=== PATIENT | female | born 1990 | race Caucasian/White ===

== ENCOUNTER 2016-05-16 09:43 | Emergency (ER) | payer MEDICAID ==
[2016-05-16] MEDS ORDERED: DEXAMETHASONE SOD PHOS INJ 10 MG/1 ML VIAL IV ONE (10:50)
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
[2016-05-16] MEDS ORDERED: HYDROXYZINE PAMOATE 25 MG CAPSULE PO ONE (11:12)
[2016-05-16 11:29] LABS: ABSOLUTE EOSINOPHILS # (AUTO) 0.1 10^3/uL (0.0-0.6); ABSOLUTE LYMPHOCYTES (AUTO) 1.4 10^3/uL (0.5-4.7); ABSOLUTE MONOCYTES (AUTO) 0.6 10^3/uL (0.1-1.4); ABSOLUTE NEUT (AUTO) 4.3 10^3/uL (1.7-8.2); BASOPHILS % (AUTO) 0.5 % (0-2); EOSINOPHILS % (AUTO) 1.8 % (0-6); HEMATOCRIT 40.7 % (36.0-47.0); HEMOGLOBIN 13.1 g/dL (12.0-15.5); HGB HCT DIFFERENCE -1.4; LYMPHOCYTES % (AUTO) 21.5 % (13-45); MEAN CORPUSCULAR HEMOGLOBIN 28.2 pg (27.0-33.4); MEAN CORPUSCULAR HGB CONC 32.1 g/dL (32.0-36.0); MEAN CORPUSCULAR VOLUME 88 fl (80-97); MONOCYTES % (AUTO) 9.7 % (3-13); RED BLOOD COUNT 4.64 10^6/uL (3.72-5.28); RED CELL DISTRIBUTION WIDTH 13.6 % (11.5-14.0); SEGMENTED NEUTROPHILS % (AUTO) 66.5 % (42-78); WHITE BLOOD COUNT 6.4 10^3/uL (4.0-10.5)
[2016-05-16 12:35] VITALS: BP 114/62
== END 2016-05-16 12:19 | disposition home or self-care (01) ==
LOC: ER 09:43
DX: M54.42 Lumbago with sciatica, left side (principal); M54.41 Lumbago with sciatica, right side; M54.5 Low back pain; R20.0 Anesthesia of skin; V87.7XXA Person injured in collision between other specified motor vehicles (traffic), initial encounter; F17.210 Nicotine dependence, cigarettes, uncomplicated
CPT/HCPCS: 99284; 96374; 36415; 85025; 72132; J3490; J1100

== ENCOUNTER 2016-06-28 14:44 | Emergency (ER) | payer MEDICAID ==
[2016-06-28] MEDS ORDERED: ONDANSETRON 4 MG TAB.RAPDIS PO ONE (15:04)
--- NOTE | 2016-06-28 15:05 | ER Document Report ---
ED Medical Screen (RME) - General Chief Complaint: Vomiting Stated Complaint: VOMITING Time seen by provider: 15:02 Notes: Patient complains of severe back pain and feeling sick since Friday. States fever, nausea, vomiting, and diarrhea started 2 days ago. States vomit looks black, has not been able to keep down any liquid or solid food since Friday. I have greeted and performed a rapid initial assessment of this patient. A comprehensive ED assessment and evaluation of the patient, analysis of test results and completion of the medical decision making process will be conducted by additional ED providers. TRAVEL OUTSIDE OF THE [place] IN LAST 30 DAYS: No - Related Data Allergies/Adverse Reactions: acetaminophen [From Tylenol-Codeine] Adverse Reaction (Intermediate, Verified 15:00) Shortness of Breath codeine phosphate [From Tylenol-Codeine] Adverse Reaction (Intermediate, Verified 06/28/16 15:00) Shortness of Breath Past Medical History - Past Medical History Cardiac Medical History: Denies: Hx Coronary Artery Disease, Hx Heart Attack, Hx Hypertension Pulmonary Medical History: Reports: Hx Bronchitis Denies: Hx Asthma, Hx COPD, Hx Pneumonia, Hx Tuberculosis Neurological Medical History: Reports: Hx Migraine. Denies: Hx Cerebrovascular Accident, Hx Seizures Renal/ Medical History: Denies: Hx Peritoneal Dialysis Musculoskeltal Medical History: Denies Hx Arthritis Psychiatric Medical History: Reports: Hx Anxiety, Hx Attention Deficit Hyperactivity Disorder, Hx Depression Past Surgical History: Reports: Hx Abdominal Surgery - Hernia repair with mesh, Hx Appendectomy, Hx Cholecystectomy, Hx Orthopedic Surgery, Hx Tubal Ligation. Denies: Hx Pacemaker - Immunizations Hx Diphtheria, Pertussis, Tetanus Vaccination: Yes - 2009 Physical Exam - Vital signs Vitals: Temp Pulse Resp BP Pulse Ox 99.5 F 122 H 18 133/78 H 96 06/28/16 14:57 06/28/16 14:57 06/28/16 14:57 06/28/16 14:57 06/28/16 14:57 - Cardiovascular Rhythm: Tachycardia Course - Vital Signs Vital signs: Temp Pulse Resp BP Pulse Ox 99.5 F 122 H 18 133/78 H 96 06/28/16 14:57 06/28/16 14:57 06/28/16 14:57 06/28/16 14:57 06/28/16 14:57
[2016-06-28] MEDS ORDERED: NORMAL SALINE 1000 ML 1,000 ML IV ONE (15:20)
--- NOTE | 2016-06-28 15:40 | ER Document Report ---
ED GI/ - General Chief Complaint: Vomiting Stated Complaint: VOMITING Mode of Arrival: Ambulatory Information source: Patient Notes: Patient reports a four-day history of left flank pain that gradually started to radiate to left side of abdomen. Patient reports malodorous urine with dysuria. Patient reports fever 102 at home today. Patient does report nausea and vomiting 3 episodes today. Patient reports she did have diarrhea yesterday but none today. Patient reports that she gets frequent urinary tract infections. TRAVEL OUTSIDE OF THE [place] IN LAST 30 DAYS: No - HPI Patient complains to provider of: Dysuria, Flank pain. No: Vaginal bleeding, Vaginal discharge Onset: Other - 4 days Timing/Duration: Persistent, Worse Quality of pain: Sharp Pain Level: 5 Location: Left flank, Other - Left lateral side of abdomen Vaginal bleeding (Compared to normal period): None Associated symptoms: Diarrhea - Yesterday, none today, Dysuria, Fever, Nausea, Vomiting. denies: Loss of appetite, Urinary hesitancy, Urinary frequency, Urinary retention, Urinary urgency, Vaginal discharge Exacerbated by: Denies Relieved by: Denies Similar symptoms previously: Yes - UTI Recently seen / treated by doctor: No - Related Data Allergies/Adverse Reactions: acetaminophen [From Tylenol-Codeine] Adverse Reaction (Intermediate, Verified 15:00) Shortness of Breath codeine phosphate [From Tylenol-Codeine] Adverse Reaction (Intermediate, Verified 06/28/16 15:00) Shortness of Breath Past Medical History - General Information source: Patient Last Menstrual Period: 06/12/2016 - Social History Smoking Status: Never Smoker Chew tobacco use (# tins/day): No Frequency of alcohol use: None Drug Abuse: None Occupation: none Family History: None Patient has suicidal ideation: No Patient has homicidal ideation: No - Past Medical History Cardiac Medical History: Denies: Hx Coronary Artery Disease, Hx Heart Attack, Hx Hypertension Pulmonary Medical History: Reports: Hx Bronchitis Denies: Hx Asthma, Hx COPD, Hx Pneumonia, Hx Tuberculosis Neurological Medical History: Reports: Hx Migraine. Denies: Hx Cerebrovascular Accident, Hx Seizures Renal/ Medical History: Reports: Other - Frequent UTIs. Denies: Hx Peritoneal Dialysis Musculoskeltal Medical History: Denies Hx Arthritis Psychiatric Medical History: Reports: Hx Anxiety, Hx Attention Deficit Hyperactivity Disorder, Hx Depression Past Surgical History: Reports: Hx Abdominal Surgery - Hernia repair with mesh, Hx Appendectomy, Hx Cholecystectomy, Hx Orthopedic Surgery, Hx Tubal Ligation. Denies: Hx Pacemaker - Immunizations Hx Diphtheria, Pertussis, Tetanus Vaccination: Yes - 2009 Review of Systems - Review of Systems Constitutional: Fever EENT: No symptoms reported Cardiovascular: No symptoms reported. denies: Chest pain Respiratory: No symptoms reported. denies: Cough, Short of breath Gastrointestinal: Abdominal pain - Left lateral side of abdomen, Diarrhea - Yesterday, none today, Nausea, Vomiting. denies: Poor appetite Genitourinary: Dysuria, Flank pain. denies: Hematuria Female Genitourinary: No symptoms reported. denies: , Vaginal discharge , Vaginal bleeding Musculoskeletal: Back pain Skin: No symptoms reported Hematologic/Lymphatic: No symptoms reported Neurological/Psychological: No symptoms reported Physical Exam - Vital signs Vitals: Temp Pulse Resp BP Pulse Ox 99.5 F 122 H 18 133/78 H 96 06/28/16 14:57 06/28/16 14:57 06/28/16 14:57 06/28/16 14:57 06/28/16 14:57 - General General appearance: Alert In distress: Mild - HEENT Head: Normocephalic, Atraumatic Eyes: Normal Nasal: Normal Mouth/Lips: Normal Mucous membranes: Dry Pharynx: Normal Neck: Normal, Supple. No: Lymphadenopathy - Respiratory Respiratory status: No respiratory distress Chest status: Nontender Breath sounds: Normal Chest palpation: Normal - Cardiovascular Rhythm: Tachycardia Heart sounds: S1 appreciated, S2 appreciated Murmur: No - Abdominal Inspection: Normal Distension: No distension Bowel sounds: Normal Tenderness: Nontender Organomegaly: No organomegaly - Back Back: CVA tenderness - Bilateral, left worse than right - Extremities General upper extremity: Normal inspection, Normal strength General lower extremity: Normal inspection, Normal strength - Neurological Neuro grossly intact: Yes Cognition: Normal [place] Coma Scale Eye Opening: Spontaneous [place] Coma Scale Verbal: Oriented [place] Coma Scale Motor: Obeys Commands [place] Coma Scale Total: 15 - Psychological Associated symptoms: Normal affect, Normal mood - Skin Skin Temperature: Warm Skin Moisture: Dry Skin Color: Normal Course - Re-evaluation Re-evalutation: 06/28/16 17:29 Patient continues with left flank pain that radiates to left lateral side of abdomen. Patient requesting pain medication. 06/28/16 18:37 Patient with bilateral flank pain left worse than right that has been constant for the past 4 days. Patient states that her symptoms feel like when she has had a UTI in the past. Patient without any previous history of kidney stones. Patient's IV fluids infuse, vital signs normalized after patient hydrated. Patient without any vomiting at present. Suspect that patient's symptoms are more likely related to urinary tract infection, no concern for kidney stones at this time. Consulted with Dr. Abrams regarding patient presentation, exam findings and diagnostic test results. Recommends treating patients UTI symptoms with Keflex , does not recommend any imaging studies at this time. Recommends outpatient follow-up with urology. 06/28/16 19:00 Patient concerned that she has a possible kidney stone. Explained to patient that her symptoms are more consistent with early pyelonephritis versus renal colic at this time. Dr. Abrams to bedside for examination. Agrees with plan to treat patient for early pyelonephritis, does not suspect that patient has a kidney stone and does not recommend CT imaging at this time. Review of controlled substance database to show the patient's had multiple narcotic prescriptions over the past several months from a variety of providers. Patient does state that she's had back pain as well as dental pain. Patient advised that her pain symptoms would be managed with a short course of pain medication. - Vital Signs Vital signs: Temp Pulse Resp BP Pulse Ox 98.4 F 102 H 16 109/71 99 06/28/16 17:48 06/28/16 17:48 06/28/16 17:48 06/28/16 17:48 06/28/16 17:48 - Laboratory Result Diagrams: 06/28/16 15:30 06/28/16 15:30 Laboratory results interpreted by me: 06/28/16 06/28/16 06/28/16 15:30 15:30 15:30 WBC 13.2 H Seg Neuts % (Manual) 80 H Band Neutrophils % 1 L Lymphocytes % (Manual) 5 L Abs Neuts (Manual) 10.7 H Abs Monocytes (Manual) 1.5 H Abs Basophils (Manual) 0.3 H Potassium 3.3 L Lactic Acid AST 13 L Lipase 19.7 L Urine Protein 100 H Ur Leukocyte Esterase TRACE H 06/28/16 16:00 WBC Seg Neuts % (Manual) Band Neutrophils % Lymphocytes % (Manual) Abs Neuts (Manual) Abs Monocytes (Manual) Abs Basophils (Manual) Potassium Lactic Acid 0.5 L AST Lipase Urine Protein Ur Leukocyte Esterase Labs- Entire Visit 06/28/16 06/28/16 06/28/16 15:30 15:30 15:30 WBC 13.2 H RBC 4.36 Hgb 12.4 Hct 37.0 MCV 85 MCH 28.5 MCHC 33.6 RDW 13.7 Plt Count 212 Total Counted 100 Seg Neutrophils % Not Reportable Seg Neuts % (Manual) 80 H Band Neutrophils % 1 L Lymphocytes % Not Reportable Lymphocytes % (Manual) 5 L Atypical Lymphs % 1 Monocytes % Not Reportable Monocytes % (Manual) 11 Eosinophils % Not Reportable Eosinophils % (Manual) 0 Basophils % Not Reportable Basophils % (Manual) 2 Absolute Neutrophils Not Reportable Abs Neuts (Manual) 10.7 H Absolute Lymphocytes Not Reportable Abs Lymphs (Manual) 0.8 Absolute Monocytes Not Reportable Abs Monocytes (Manual) 1.5 H Absolute Eosinophils Not Reportable Absolute Eos (Manual) 0.0 Absolute Basophils Not Reportable Abs Basophils (Manual) 0.3 H Clumped Platelets PRESENT Platelet Comment ADEQUATE Polychromasia SLIGHT PT INR VBG pH VBG pCO2 VBG HCO3 VBG Base Excess Sodium 137.8 Potassium 3.3 L Chloride 102 Carbon Dioxide 24 Anion Gap 12 BUN 14 Creatinine 0.76 Est GFR ( Amer) > 60 Est GFR (Non-Af Amer) > 60 Glucose 99 Lactic Acid Calcium 9.7 Total Bilirubin 0.5 Direct Bilirubin 0.0 AST 13 L ALT 29 Alkaline Phosphatase 101 Total Protein 6.5 Albumin 3.7 Lipase 19.7 L Serum HCG, Qual NEGATIVE Urine Color Urine Appearance Urine pH Ur Specific [place] Urine Protein Urine Glucose (UA) Urine Ketones Urine Blood Urine Nitrite Urine Bilirubin Urine Urobilinogen Ur Leukocyte Esterase Urine WBC (Auto) Urine RBC (Auto) Urine Bacteria (Auto) Squamous Epi Cells Auto Urine Mucus (Auto) Urine Ascorbic Acid 06/28/16 06/28/16 06/28/16 15:30 16:00 17:35 WBC RBC Hgb Hct MCV MCH MCHC RDW Plt Count Total Counted Seg Neutrophils % Seg Neuts % (Manual) Band Neutrophils % Lymphocytes % Lymphocytes % (Manual) Atypical Lymphs % Monocytes % Monocytes % (Manual) Eosinophils % Eosinophils % (Manual) Basophils % Basophils % (Manual) Absolute Neutrophils Abs Neuts (Manual) Absolute Lymphocytes Abs Lymphs (Manual) Absolute Monocytes Abs Monocytes (Manual) Absolute Eosinophils Absolute Eos (Manual) Absolute Basophils Abs Basophils (Manual) Clumped Platelets Platelet Comment Polychromasia PT 13.8 INR 1.03 VBG pH VBG pCO2 VBG HCO3 VBG Base Excess Sodium Potassium Chloride Carbon Dioxide Anion Gap BUN Creatinine Est GFR ( Amer) Est GFR (Non-Af Amer) Glucose Lactic Acid 0.5 L Calcium Total Bilirubin Direct Bilirubin AST ALT Alkaline Phosphatase Total Protein Albumin Lipase Serum HCG, Qual Urine Color YELLOW Urine Appearance SLIGHTLY-CLOUDY Urine pH 6.0 Ur Specific [place] 1.024 Urine Protein 100 H Urine Glucose (UA) NEGATIVE Urine Ketones NEGATIVE Urine Blood NEGATIVE Urine Nitrite NEGATIVE Urine Bilirubin NEGATIVE Urine Urobilinogen NEGATIVE Ur Leukocyte Esterase TRACE H Urine WBC (Auto) 33 Urine RBC (Auto) 4 Urine Bacteria (Auto) TRACE Squamous Epi Cells Auto 10 Urine Mucus (Auto) FEW Urine Ascorbic Acid NEGATIVE 06/28/16 17:35 WBC RBC Hgb Hct MCV MCH MCHC RDW Plt Count Total Counted Seg Neutrophils % Seg Neuts % (Manual) Band Neutrophils % Lymphocytes % Lymphocytes % (Manual) Atypical Lymphs % Monocytes % Monocytes % (Manual) Eosinophils % Eosinophils % (Manual) Basophils % Basophils % (Manual) Absolute Neutrophils Abs Neuts (Manual) Absolute Lymphocytes Abs Lymphs (Manual) Absolute Monocytes Abs Monocytes (Manual) Absolute Eosinophils Absolute Eos (Manual) Absolute Basophils Abs Basophils (Manual) Clumped Platelets Platelet Comment Polychromasia PT INR VBG pH 7.39 VBG pCO2 43.5 VBG HCO3 25.7 VBG Base Excess 0.6 Sodium Potassium Chloride Carbon Dioxide Anion Gap BUN Creatinine Est GFR ( Amer) Est GFR (Non-Af Amer) Glucose Lactic Acid Calcium Total Bilirubin Direct Bilirubin AST ALT Alkaline Phosphatase Total Protein Albumin Lipase Serum HCG, Qual Urine Color Urine Appearance Urine pH Ur Specific [place] Urine Protein Urine Glucose (UA) Urine Ketones Urine Blood Urine Nitrite Urine Bilirubin Urine Urobilinogen Ur Leukocyte Esterase Urine WBC (Auto) Urine RBC (Auto) Urine Bacteria (Auto) Squamous Epi Cells Auto Urine Mucus (Auto) Urine Ascorbic Acid 06/28/16 18:41 06/28/16 19:27 Discharge - Discharge Clinical Impression: Flank pain, Hypokalemia UTI (urinary tract infection) Qualifiers: Urinary tract infection type: site unspecified Hematuria presence: without hematuria Qualified Code(s): N39.0 - Urinary tract infection, site not specified Condition: Stable Disposition: HOME, SELF-CARE Instructions: Flank Pain ([facility]), Hypokalemia ([facility]) Additional Instructions: Return immediately for any new or worsening symptoms Followup with your primary care provider, call tomorrow to make a followup appointment Follow-up with a urologist for a recheck. Call Friday morning for an appointment. Cultures are pending, we will call if you need any different treatment. Your potassium level was mildly decreased today. Your primary doctor can recheck this laboratory result next week. URINARY TRACT INFECTION: Your evaluation indicates that you have a urinary tract infection. This is due to germs growing in the bladder. This is a common problem. This infection usually responds quickly to antibiotics. Your antibiotic should be taken exactly as prescribed. Drink plenty of fluids -- three to four quarts a day. Occasionally, a bladder anesthetic will be prescribed to help stop the feeling of urgency until the antibiotic has a chance to clear the infection. This may cause your urine to be dark orange. Certain urine infections require a culture. If the doctor obtained a culture, the results will be back in two days. You should call to see if a change in treatment is needed. A repeat urinalysis after you finish treatment is often recommended. The physician will let you know if further testing is required. Call the doctor if you develop fever, chills, flank pain, inability to urinate, or blood in the urine. ANTIBIOTIC THERAPY: You have been given an antibiotic prescription. It's important that you take all the medication, unless instructed otherwise by your physician. Failure to complete the entire course can result in relapse of your condition. Common side effects of antibiotics include nausea, intestinal cramping, or diarrhea. Women may develop vaginal yeast infections, and babies can get yeast (thrush) in the mouth following the use of antibiotics. Contact your physician if you develop significant side effects from this medication. Allergy to this antibiotic can result in hives, wheezing, faintness, or itching. If symptoms of allergy occur, stop the medication and call the doctor. CEPHALEXIN: The antibiotic you've been prescribed is a member of the cephalosporin class. This type of antibiotic covers a wide variety of infections, including those of the skin, lungs, and urinary tract. It's useful for staph infections. This antibiotic is slightly similar to the penicillin family. In rare cases , a person who is allergic to penicillin will also be allergic to this medication. If you have had a severe allergic reaction to penicillin, and have not taken this antibiotic since that time, notify your doctor. Antibiotics which cover many germs ("broad spectrum" antibiotics) are more likely to cause diarrhea or "yeast" infections. Women prone to vaginal yeast problems may suffer an attack after taking this antibiotic. In infants, oral thrush (white spots "stuck" on the cheek) or yeast diaper rash may result. See your doctor if these problems occur. Call at once if you develop itching, hives , shortness of breath, or lightheadedness. URINARY ANESTHETIC AGENT: You have been given a medication (Pyridium) for urinary tract discomfort. This medicine numbs the lining of the bladder and urethra, resulting in less pain, burning, and urgency. You may take it as needed, according to instructions. When the symptoms resolve, you can stop this medication (be sure to continue any other medications the doctor has given you). This medicine turns the urine a dark orange. It may stain underwear. Occasionally, it can cause nausea. Return for evaluation if there are any unexpected effects, such as itching, hives, or shortness of breath. FOLLOW-UP CARE: If you have been referred to a physician for follow-up care, call the physician s office for an appointment as you were instructed or within the next two days. If you experience worsening or a significant change in your symptoms, notify the physician immediately or return to the Emergency Department at any time for re-evaluation. Prescriptions: Cephalexin Monohydrate [Keflex 500 mg Capsule] 500 mg PO BID 10 Days Hydrocodone/Acetaminophen [[place] 5-325 Tablet] 1 each PO Q4 PRN #12 tablet PRN Reason: Ondansetron HCl [Zofran 4 mg Tablet] 1 - 2 tab PO Q6 PRN #15 tablet PRN Reason: Phenazopyridine HCl [Pyridium 200 mg Tablet] 200 mg PO TID #15 tablet Referrals: [facility] [Provider Group] - Follow up tomorrow [facility] [Provider Group] - Follow up as needed [facility] [Provider Group] - 07/01/16
[2016-06-28 15:53] LABS: HEMOGLOBIN 12.4 g/dL (12.0-15.5); HGB HCT DIFFERENCE 0.2; MEAN CORPUSCULAR HEMOGLOBIN 28.5 pg (27.0-33.4); MEAN CORPUSCULAR HGB CONC 33.6 g/dL (32.0-36.0); MEAN CORPUSCULAR VOLUME 85 fl (80-97); RED BLOOD COUNT 4.36 10^6/uL (3.72-5.28); RED CELL DISTRIBUTION WIDTH 13.7 % (11.5-14.0); WHITE BLOOD COUNT 13.2 10^3/uL (4.0-10.5)
[2016-06-28 16:07] LABS: ALANINE AMINOTRANSFERASE 29 U/L (9-52); ALBUMIN 3.7 g/dL (3.5-5.0); ALKALINE PHOSPHATASE 101 U/L (38-126); ANION GAP 12 (5-19); ASPARTATE AMINO TRANSFERASE 13 U/L (14-36); BILIRUBIN,TOTAL 0.5 mg/dL (0.2-1.3); BLOOD UREA NITROGEN 14 mg/dL (7-20); CALCIUM 9.7 mg/dL (8.4-10.2); CARBON DIOXIDE 24 mmol/L (22-30); CHLORIDE 102 mmol/L (98-107); CREATININE RESULT 0.76 mg/dL (0.52-1.25); GLUCOSE 99 mg/dL (75-110); LIPASE 19.7 U/L (23-300); POTASSIUM 3.3 mmol/L (3.6-5.0); SODIUM 137.8 mmol/L (137-145); TOTAL PROTEIN 6.5 g/dL (6.3-8.2)
[2016-06-28 16:09] LABS: APPEARANCE,URINE SLIGHTLY-CLOUDY; BILIRUBIN,URINE NEGATIVE (NEGATIVE); GLUCOSE, URINE NEGATIVE (NEGATIVE); KETONES,URINE NEGATIVE (NEGATIVE); LEUKOCYTE ESTERASE,URINE TRACE (NEGATIVE); NITRITE,URINE NEGATIVE (NEGATIVE); PROTEIN,URINE 100 mg/dL (NEGATIVE); URINE SPECIFIC GRAVITY 1.024; UROBILINOGEN,URINE NEGATIVE mg/dL (<2.0)
[2016-06-28 16:17] LABS: BAND NEUTROPHILS % (MANUAL) 1 % (3-5); BASOPHILS % (MANUAL) 2 % (0-2); EOSINOPHILS % (MANUAL) 0 % (0-6); LYMPHOCYTES % (MANUAL) 5 % (13-45); TOTAL CELLS COUNTED 100
[2016-06-28 16:18] LABS: POLYCHROMASIA SLIGHT
[2016-06-28 16:19] LABS: PLATELET CLUMPS PRESENT
[2016-06-28] MEDS ORDERED: KETOROLAC TROMETHAMINE INJ/PF 30 MG/1 ML SDV IV ONE (17:28)
[2016-06-28 17:45] LABS: VENOUS BLOOD BASE EXCESS 0.6 mmol/L; VENOUS BLOOD HCO3 25.7 mmol/L (20-32); VENOUS BLOOD PCO2 43.5 mmHg (35-63); VENOUS BLOOD PH 7.39 (7.30-7.42)
[2016-06-28 17:52] LABS: PROTHROMBIN TIME 13.8 SEC (11.4-15.4)
[2016-06-28] MEDS ORDERED: CEFTRIAXONE RTU 1 GM/D5W 50 ML IV ONE (18:01)
[2016-06-28] MEDS ORDERED: POTASSIUM CHLORIDE 10 MEQ TABLET.SA PO ONE (18:34)
--- NOTE | 2016-06-28 18:51 | EKG REPORT ---
SEVERITY:- ABNORMAL ECG - SINUS TACHYCARDIA NONSPECIFIC REPOL ABNORMALITY, DIFFUSE LEADS : Confirmed by: Marvin Bunch MD 28-Jun-2016 18:50:42
[2016-06-28 20:43] VITALS: BP 117/71
== END 2016-06-28 19:31 | disposition home or self-care (01) ==
LOC: ER 14:44
DX: E87.6 Hypokalemia (principal); N39.0 Urinary tract infection, site not specified; R10.9 Unspecified abdominal pain; R50.9 Fever, unspecified; R11.2 Nausea with vomiting, unspecified; Z88.6 Allergy status to analgesic agent; Z87.440 Personal history of urinary (tract) infections; Z90.49 Acquired absence of other specified parts of digestive tract; Z98.51 Tubal ligation status
CPT/HCPCS: 93005; 99283; 96361; 96375; 96365; 36415; 87040; 87086; 83690; 84703; 85025; 85610; 80053; 81001; 82803; 83605; 93010; S0119; J1885; J7030; J0696

== ENCOUNTER → 2016-07-12 | Outpatient (CLI) | payer MEDICAID ==
[2016-07-12 15:03] LABS: ABSOLUTE EOSINOPHILS # (AUTO) 0.1 10^3/uL (0.0-0.6); ABSOLUTE LYMPHOCYTES (AUTO) 1.4 10^3/uL (0.5-4.7); ABSOLUTE MONOCYTES (AUTO) 0.7 10^3/uL (0.1-1.4); BASOPHILS % (AUTO) 0.7 % (0-2); EOSINOPHILS % (AUTO) 1.3 % (0-6); HEMATOCRIT 33.9 % (36.0-47.0); HEMOGLOBIN 11.3 g/dL (12.0-15.5); LYMPHOCYTES % (AUTO) 19.3 % (13-45); MEAN CORPUSCULAR HEMOGLOBIN 28.7 pg (27.0-33.4); MEAN CORPUSCULAR HGB CONC 33.3 g/dL (32.0-36.0); MEAN CORPUSCULAR VOLUME 86 fl (80-97); MONOCYTES % (AUTO) 9.7 % (3-13); RED BLOOD COUNT 3.94 10^6/uL (3.72-5.28); RED CELL DISTRIBUTION WIDTH 13.7 % (11.5-14.0); WHITE BLOOD COUNT 7.2 10^3/uL (4.0-10.5)
[2016-07-12 15:22] LABS: ALANINE AMINOTRANSFERASE 23 U/L (9-52); ALBUMIN 3.9 g/dL (3.5-5.0); ALKALINE PHOSPHATASE 80 U/L (38-126); ANION GAP 13 (5-19); ASPARTATE AMINO TRANSFERASE 15 U/L (14-36); BILIRUBIN,TOTAL 0.4 mg/dL (0.2-1.3); BLOOD UREA NITROGEN 15 mg/dL (7-20); CALCIUM 9.7 mg/dL (8.4-10.2); CARBON DIOXIDE 25 mmol/L (22-30); CHLORIDE 105 mmol/L (98-107); CREATININE RESULT 0.76 mg/dL (0.52-1.25); GLUCOSE 95 mg/dL (75-110); POTASSIUM 4.4 mmol/L (3.6-5.0); SODIUM 143.4 mmol/L (137-145)
== END ==
LOC: LAB 14:20
PROVIDERS: ATTEND Nurse Practitioner Family
DX: M54.10 Radiculopathy, site unspecified (principal); N10 Acute pyelonephritis
CPT/HCPCS: 36415; 80053; 85025; 87040

== ENCOUNTER → 2016-07-22 | Outpatient (CLI) | payer MEDICAID | LOC: OD 11:16 | PROVIDERS: ATTEND Nurse Practitioner Acute Care | DX: M54.5 Low back pain (principal); M51.86 Other intervertebral disc disorders, lumbar region | CPT/HCPCS: 72110 ==

== ENCOUNTER → 2016-09-04 | Outpatient (CLI) | payer SELFPAY ==
[2016-09-04 20:24] LABS: CHLAM PCR NOT DETECTED (NOT DETECT)
== END ==
LOC: LAB 15:48
PROVIDERS: ATTEND Nurse Practitioner Acute Care
DX: N89.8 Other specified noninflammatory disorders of vagina (principal); R30.0 Dysuria
CPT/HCPCS: 87086; 87210; 87491; 87591

== ENCOUNTER 2016-12-23 12:42 | Emergency (ER) | payer SELFPAY ==
[2016-12-23] MEDS ORDERED: ONDANSETRON HCL INJ/PF 4 MG/2 ML SDV IV ONE ×2 (13:16→15:10)
[2016-12-23] MEDS ORDERED: NORMAL SALINE 1000 ML 1,000 ML IV PRN (13:16)
--- NOTE | 2016-12-23 13:18 | ER Document Report ---
ED Medical Screen (RME) - General Chief Complaint: Flank Pain Stated Complaint: FLANK PAIN Time Seen by Provider: 12/23/16 13:15 Notes: Patient states that she has had several days of left lower quadrant and left flank pain. She states she gets frequent UTIs and kidney infections but this feels more severe than previous ones. Patient states that she has had a tubal ligation and appendectomy and a cholecystectomy. She has had nausea and vomiting as well. She also states she has dysuria. TRAVEL OUTSIDE OF THE [place] IN LAST 30 DAYS: No - Related Data Allergies/Adverse Reactions: acetaminophen [From Tylenol-Codeine] Adverse Reaction (Intermediate, Verified 12:52) Shortness of Breath codeine phosphate [From Tylenol-Codeine] Adverse Reaction (Intermediate, Verified 12/23/16 12:52) Shortness of Breath Home Medications: Current Home Medications No Home Medications 12/23/16 [History] Past Medical History - Social History Chew tobacco use (# tins/day): No Frequency of alcohol use: None Drug Abuse: None - Past Medical History Cardiac Medical History: Denies: Hx Coronary Artery Disease, Hx Heart Attack, Hx Hypertension Pulmonary Medical History: Reports: Hx Bronchitis Denies: Hx Asthma, Hx COPD, Hx Pneumonia, Hx Tuberculosis Neurological Medical History: Reports: Hx Migraine. Denies: Hx Cerebrovascular Accident, Hx Seizures Renal/ Medical History: Denies: Hx Peritoneal Dialysis Musculoskeltal Medical History: Denies Hx Arthritis Psychiatric Medical History: Reports: Hx Anxiety, Hx Attention Deficit Hyperactivity Disorder, Hx Depression Past Surgical History: Reports: Hx Abdominal Surgery - Hernia repair with mesh, Hx Appendectomy, Hx Cholecystectomy, Hx Orthopedic Surgery - Right finger, Hx Tubal Ligation. Denies: Hx Pacemaker - Immunizations Hx Diphtheria, Pertussis, Tetanus Vaccination: Yes - 2009 Physical Exam - Vital signs Vitals: Temp Pulse Resp BP Pulse Ox 98.2 F 126 H 18 131/76 H 99 12/23/16 12:52 12/23/16 12:52 12/23/16 12:52 12/23/16 12:52 12/23/16 12:52 Course - Vital Signs Vital signs: Temp Pulse Resp BP Pulse Ox 98.2 F 126 H 18 131/76 H 99 12/23/16 12:52 12/23/16 12:52 12/23/16 12:52 12/23/16 12:52 12/23/16 12:52
[2016-12-23 13:51] LABS: ABSOLUTE LYMPHOCYTES (AUTO) 0.9 10^3/uL (0.5-4.7); ABSOLUTE MONOCYTES (AUTO) 1.3 10^3/uL (0.1-1.4); ABSOLUTE NEUT (AUTO) 8.1 10^3/uL (1.7-8.2); BASOPHILS % (AUTO) 0.4 % (0-2); EOSINOPHILS % (AUTO) 0.1 % (0-6); HEMOGLOBIN 13.1 g/dL (12.0-15.5); HGB HCT DIFFERENCE 1.3; LYMPHOCYTES % (AUTO) 8.8 % (13-45); MEAN CORPUSCULAR HEMOGLOBIN 29.5 pg (27.0-33.4); MEAN CORPUSCULAR HGB CONC 34.4 g/dL (32.0-36.0); MEAN CORPUSCULAR VOLUME 86 fl (80-97); MONOCYTES % (AUTO) 12.5 % (3-13); RED BLOOD COUNT 4.43 10^6/uL (3.72-5.28); RED CELL DISTRIBUTION WIDTH 13.5 % (11.5-14.0); SEGMENTED NEUTROPHILS % (AUTO) 78.2 % (42-78); WHITE BLOOD COUNT 10.4 10^3/uL (4.0-10.5)
[2016-12-23] MEDS ORDERED: KETOROLAC TROMETHAMINE INJ/PF 30 MG/1 ML SDV IV ONE (13:53)
--- NOTE | 2016-12-23 13:53 | ER Document Report ---
ED General - General Mode of Arrival: Ambulatory Information source: Patient TRAVEL OUTSIDE OF THE [place] IN LAST 30 DAYS: No - HPI Onset: Other - 3 days Associated symptoms: Other - see above <REVA TURK - Last Filed: 12/23/16 13:47> <ALFONZO ROSAS - Last Filed: 12/23/16 17:13> - General Chief Complaint: Flank Pain Stated Complaint: FLANK PAIN Time Seen by Provider: 12/23/16 13:15 Notes: Patient is a 26 year old female who presents to the ED with complaints of left flank pain,pain with urination, nausea and vomiting x3 days. Patient has also had a fever. Patient denies a history of kidney stones. Patient LMP was . Patient is not on any daily medications. Patient adds she has had a cough for the past week. (REVA TURK) - Related Data Allergies/Adverse Reactions: acetaminophen [From Tylenol-Codeine] Adverse Reaction (Intermediate, Verified 12:52) Shortness of Breath codeine phosphate [From Tylenol-Codeine] Adverse Reaction (Intermediate, Verified 12/23/16 12:52) Shortness of Breath Past Medical History - General Information source: Patient - Social History Smoking Status: Current Every Day Smoker Chew tobacco use (# tins/day): No Frequency of alcohol use: Rare Drug Abuse: None Family History: None Pulmonary Medical History: Reports: Hx Bronchitis Denies: Hx Asthma, Hx COPD, Hx Pneumonia, Hx Tuberculosis Neurological Medical History: Reports: Hx Migraine Renal/ Medical History: Denies: Hx Peritoneal Dialysis Musculoskeltal Medical History: Denies Hx Arthritis Psychiatric Medical History: Reports: Hx Anxiety, Hx Attention Deficit Hyperactivity Disorder, Hx Depression Past Surgical History: Reports: Hx Abdominal Surgery - Hernia repair with mesh, Hx Appendectomy, Hx Cholecystectomy, Hx Orthopedic Surgery - Right finger, Hx Tubal Ligation. Denies: Hx Pacemaker - Immunizations Hx Diphtheria, Pertussis, Tetanus Vaccination: Yes - 2009 <REVA TURK - Last Filed: 12/23/16 13:47> Review of Systems - Review of Systems Constitutional: See HPI, Fever EENT: No symptoms reported Cardiovascular: No symptoms reported Respiratory: See HPI, Cough Gastrointestinal: See HPI, Nausea, Vomiting Genitourinary: See HPI, Dysuria, Flank pain, Pain Female Genitourinary: See HPI, Last menstrual period - 12/03/16 Musculoskeletal: No symptoms reported Skin: No symptoms reported Hematologic/Lymphatic: No symptoms reported Neurological/Psychological: No symptoms reported <REVA TURK - Last Filed: 12/23/16 13:47> Physical Exam - General General appearance: Appears well, Alert In distress: None - HEENT Head: Normocephalic, Atraumatic Eyes: Normal Extraocular movements intact: Yes Pupils: PERRL Sinus: Other - congestion - Respiratory Respiratory status: No respiratory distress Breath sounds: Nonproductive cough, Rhonchi - Cardiovascular Rhythm: Regular Heart sounds: Normal auscultation Murmur: No - Abdominal Inspection: Normal Distension: No distension Bowel sounds: Normal Tenderness: Nontender - Back Back: CVA tenderness - left CVA - Extremities General upper extremity: Normal inspection, Normal ROM General lower extremity: Normal inspection, Normal ROM - Neurological Neuro grossly intact: Yes - Psychological Associated symptoms: Normal affect, Normal mood - Skin Skin Temperature: Warm Skin Moisture: Dry Skin Color: Normal <REVA TURK - Last Filed: 12/23/16 13:47> - Vital signs Vitals: Temp Pulse Resp BP Pulse Ox 98.2 F 126 H 18 131/76 H 99 12/23/16 12:52 12/23/16 12:52 12/23/16 12:52 12/23/16 12:52 12/23/16 12:52 Course - Laboratory Result Diagrams: 12/23/16 13:37 12/23/16 13:37 <REVA TURK - Last Filed: 12/23/16 13:47> - Laboratory Result Diagrams: 12/23/16 13:37 12/23/16 13:37 <ALFONZO ROSAS - Last Filed: 12/23/16 17:13> - Vital Signs Vital signs: Temp Pulse Resp BP Pulse Ox 98.2 F 126 H 18 131/76 H 99 12/23/16 12:52 12/23/16 12:52 12/23/16 12:52 12/23/16 12:52 12/23/16 12:52 - Laboratory Laboratory results interpreted by me: 12/23/16 12/23/16 13:37 15:30 Seg Neutrophils % 78.2 H Lymphocytes % 8.8 L Ur Leukocyte Esterase TRACE H Discharge <REVA TURK - Last Filed: 12/23/16 13:47> <ALISONALFONZO Vigil - Last Filed: 12/23/16 17:13> - Discharge Clinical Impression: Flank pain Urinary tract infection Qualifiers: Urinary tract infection type: site unspecified Hematuria presence: without hematuria Qualified Code(s): N39.0 - Urinary tract infection, site not specified Condition: Stable Disposition: HOME, SELF-CARE Additional Instructions: Flank Pain: We weren't able to prove an exact cause for your flank pain. Pain in the flank can be caused by a muscle strain or spasm. Sometimes a kidney stone causes pain, but can't be found on our tests. Infection in the kidney should be evident on a urine test. Early shingles can occasionally cause flank pain, without the rash that proves the diagnosis. On rare occasions, disease of the pancreas, aorta, spleen, or colon can create pain in the flank. At this time, there's no evidence of a dangerous condition, and it seems safe for you to be at home. If the pain goes away and does not come back, no further testing will be needed. If pain persists, or becomes more severe, we may need to repeat some tests or order additional new testing. Blood in the urine, urgency to urinate frequently, and pain that radiates to the groin can indicate a kidney stone. Fever may mean that the pain is due to infection, either of the kidney or the colon (diverticulitis). If your pain is early shingles, you should develop an eruption of blisters in the painful area within a few days. Call the doctor or return if you have pain that is spreading or becoming more severe, pain that does not resolve with time, fever, or any other new symptoms. Urinary Tract Infection: Your evaluation SUGGESTS that you have a urinary tract infection. This is due to germs growing in the bladder. This is a common problem. This infection usually responds quickly to antibiotics. Your antibiotic should be taken exactly as prescribed. Drink plenty of fluids -- three to four quarts a day. Occasionally, a bladder anesthetic will be prescribed to help stop the feeling of urgency until the antibiotic has a chance to clear the infection. This may cause your urine to be dark orange. Certain urine infections require a culture. If the doctor obtained a culture, the results will be back in two days. You should call to see if a change in treatment is needed. A repeat urinalysis after you finish treatment is often recommended. The physician will let you know if further testing is required. Call the doctor if you develop fever, chills, flank pain, inability to urinate, or blood in the urine. YOUR PAIN IS MOST LIKELY COMING FORM THE FLANK MUSCLES. YOUR URINE SUGGESTS THAT YOU MAY HAVE A BLADDER INFECTION. TAKE THE MEDICATION PRESCRIBED. DRINK MPLENTY OF FLUIDS. REST. FOLLOW UP WITH YOUR DOCTOR IF NOT IMPROVING. RETURN TO THE EMERGENCY ROOM IF ANY NEW OR WORSENING SYMPTOMS. Prescriptions: Cephalexin Monohydrate [Keflex 500 mg Capsule] 500 mg PO QID #20 capsule Hydrocodone/Acetaminophen [Hydrocodon-Acetaminophen 5-325] 1 each PO Q4 PRN #15 tablet PRN Reason: For Pain Scribe Attestation: 12/23/16 17:11 I personally performed the services described in the documentation, reviewed and edited the documentation which was dictated to the scribe in my presence, and it accurately records my words and actions. (ALFONZO ROSAS) Scribe Documentation - Scribe Written by Paula:: paula Black, 12/23/2016, 1354 acting as scribe for :: Alison <REVA TURK - Last Filed: 12/23/16 13:47>
[2016-12-23 14:17] LABS: ALANINE AMINOTRANSFERASE 32 U/L (9-52); ALBUMIN 4.5 g/dL (3.5-5.0); ALKALINE PHOSPHATASE 85 U/L (38-126); ANION GAP 13 (5-19); ASPARTATE AMINO TRANSFERASE 28 U/L (14-36); BILIRUBIN,DIRECT 0.3 mg/dL (0.0-0.4); BILIRUBIN,TOTAL 0.8 mg/dL (0.2-1.3); BLOOD UREA NITROGEN 11 mg/dL (7-20); CALCIUM 9.9 mg/dL (8.4-10.2); CARBON DIOXIDE 26 mmol/L (22-30); CHLORIDE 98 mmol/L (98-107); CREATININE RESULT 0.71 mg/dL (0.52-1.25); GLUCOSE 92 mg/dL (75-110); POTASSIUM 3.8 mmol/L (3.6-5.0); SODIUM 137.3 mmol/L (137-145); TOTAL PROTEIN 7.5 g/dL (6.3-8.2)
[2016-12-23] MEDS ORDERED: DEXTROSE 5%-LACTATED RINGERS 1,000 ML IV ONE (14:36)
[2016-12-23] MEDS ORDERED: MORPHINE SULFATE 10 MG/ML INJ IV ONE (15:10)
[2016-12-23 17:03] LABS: APPEARANCE,URINE SLIGHTLY-CLOUDY; BILIRUBIN,URINE NEGATIVE (NEGATIVE); GLUCOSE, URINE NEGATIVE (NEGATIVE); KETONES,URINE NEGATIVE (NEGATIVE); LEUKOCYTE ESTERASE,URINE TRACE (NEGATIVE); NITRITE,URINE NEGATIVE (NEGATIVE); PROTEIN,URINE NEGATIVE (NEGATIVE); URINE SPECIFIC GRAVITY 1.005; UROBILINOGEN,URINE NEGATIVE mg/dL (<2.0)
[2016-12-23 17:25] VITALS: BP 124/74
== END 2016-12-23 17:26 | disposition home or self-care (01) ==
LOC: ER 12:42
DX: N39.0 Urinary tract infection, site not specified (principal); R10.9 Unspecified abdominal pain; R30.0 Dysuria; R11.2 Nausea with vomiting, unspecified; R50.9 Fever, unspecified; R09.89 Other specified symptoms and signs involving the circulatory and respiratory systems; R09.81 Nasal congestion; R05 Cough; F17.200 Nicotine dependence, unspecified, uncomplicated; Z90.49 Acquired absence of other specified parts of digestive tract; Z98.51 Tubal ligation status
CPT/HCPCS: 96376; 99284; 96375; 96365; 36415; 87086; 85025; 81025; 80053; 81001; J1885; J2270; J2405

== ENCOUNTER → 2016-12-24 | Outpatient (CLI) | payer SELFPAY ==
--- NOTE | 2016-12-24 14:03 | RADIOLOGY REPORT (SQ) ---
EXAM DESCRIPTION: CHEST PA/LAT COMPLETED DATE/TIME: 12/24/2016 1:52 pm REASON FOR STUDY: COUGH COMPARISON: Two-view chest 10/16/2015 EXAM PARAMETERS: NUMBER OF VIEWS: two views TECHNIQUE: Digital Frontal and Lateral radiographic views of the chest acquired. RADIATION DOSE: NA LIMITATIONS: none FINDINGS: LUNGS AND PLEURA: No opacities, masses or pneumothorax. No pleural effusion. MEDIASTINUM AND HILAR STRUCTURES: No masses or contour abnormalities. HEART AND VASCULAR STRUCTURES: Heart normal size. No evidence for failure. BONES: No acute findings. HARDWARE: Clips right upper quadrant post cholecystectomy. Laparoscopic periumbilical ventral hernia tacks. OTHER: No other significant finding. IMPRESSION: NO SIGNIFICANT RADIOGRAPHIC FINDING IN THE CHEST. TECHNICAL DOCUMENTATION: JOB ID: [id number] [employer]- All Rights Reserved
[2016-12-24 14:14] LABS: ABSOLUTE MONOCYTES (AUTO) 1.7 10^3/uL (0.1-1.4); ABSOLUTE NEUT (AUTO) 7.1 10^3/uL (1.7-8.2); BASOPHILS % (AUTO) 0.3 % (0-2); EOSINOPHILS % (AUTO) 0.3 % (0-6); HEMATOCRIT 36.2 % (36.0-47.0); HEMOGLOBIN 12.3 g/dL (12.0-15.5); HGB HCT DIFFERENCE 0.7; LYMPHOCYTES % (AUTO) 10.1 % (13-45); MEAN CORPUSCULAR HEMOGLOBIN 29.1 pg (27.0-33.4); MEAN CORPUSCULAR HGB CONC 33.9 g/dL (32.0-36.0); MEAN CORPUSCULAR VOLUME 86 fl (80-97); MONOCYTES % (AUTO) 17.3 % (3-13); RED BLOOD COUNT 4.22 10^6/uL (3.72-5.28); RED CELL DISTRIBUTION WIDTH 13.5 % (11.5-14.0); WHITE BLOOD COUNT 9.9 10^3/uL (4.0-10.5)
[2016-12-24 14:32] LABS: ALANINE AMINOTRANSFERASE 29 U/L (9-52); ALBUMIN 3.8 g/dL (3.5-5.0); ALKALINE PHOSPHATASE 77 U/L (38-126); ANION GAP 12 (5-19); ASPARTATE AMINO TRANSFERASE 16 U/L (14-36); BILIRUBIN,DIRECT 0.3 mg/dL (0.0-0.4); BILIRUBIN,TOTAL 0.6 mg/dL (0.2-1.3); BLOOD UREA NITROGEN 10 mg/dL (7-20); CALCIUM 9.8 mg/dL (8.4-10.2); CARBON DIOXIDE 27 mmol/L (22-30); CHLORIDE 101 mmol/L (98-107); CREATININE RESULT 0.66 mg/dL (0.52-1.25); GLUCOSE 113 mg/dL (75-110); POTASSIUM 3.4 mmol/L (3.6-5.0); SODIUM 140.1 mmol/L (137-145); TOTAL PROTEIN 6.4 g/dL (6.3-8.2)
== END ==
LOC: LAB 13:30
PROVIDERS: ATTEND Nurse Practitioner Family
DX: R05 Cough (principal); R07.81 Pleurodynia
CPT/HCPCS: 36415; 71020; 80053; 85025

== ENCOUNTER 2017-02-20 21:14 | Emergency (ER) | payer SELFPAY ==
[2017-02-20] MEDS ORDERED: BUTALB/ACETAMINOPHEN/CAFFEINE 1 TAB EACH PO ONE (22:18)
[2017-02-20] MEDS ORDERED: GABAPENTIN 300 MG CAPSULE PO ONE (23:17)
[2017-02-20] MEDS ORDERED: CLONIDINE 0.1 MG/24 HR PATCH.TDWK TD ONE (23:17)
[2017-02-20] MEDS ORDERED: ONDANSETRON ODT 4 MG TAB (6 TAB/DSPK) PO PRN (23:18)
[2017-02-20] MEDS ORDERED: CEPHALEXIN 500 MG CAPSULE PO ONE (23:19)
--- NOTE | 2017-02-20 23:24 | ER Document Report ---
ED General - General Chief Complaint: Headache Stated Complaint: DRUG WITHDRAWAL Time Seen by Provider: 02/20/17 22:00 Notes: Patient is a 26-year-old female with history of opiate dependency, last use of heroin approximately 12 hours prior to arrival who presents with requests for assistance with detox and withdrawal. Patient denies having ever gone more than a day without using opiates in the past 8-9 months. She does not currently have any active withdrawal symptoms. Patient also complains of pain to her left antecubital fossa where she believes she has developed an infection from injecting. Patient does state that she used clean needles but may have used an infected or contaminated cottonball to clean the area prior to injecting on occasion approximately 3 or 4 days ago. She does note a dull, constant aching pain to the affected area. Nothing improves or worsens that pain. She has not had any fever or constitutional symptoms. She has not seen a primary care doctor regarding today's concerns. TRAVEL OUTSIDE OF THE [place] IN LAST 30 DAYS: No - Related Data Allergies/Adverse Reactions: acetaminophen [From Tylenol-Codeine] Adverse Reaction (Intermediate, Verified 12:52) Shortness of Breath codeine phosphate [From Tylenol-Codeine] Adverse Reaction (Intermediate, Verified 12/23/16 12:52) Shortness of Breath Past Medical History - General Information source: Patient - Social History Smoking Status: Current Every Day Smoker Frequency of alcohol use: None Drug Abuse: Heroin, Methamphetamine, Prescription drugs Lives with: Spouse/Significant other Family History: Reviewed & Not Pertinent Patient has suicidal ideation: No Patient has homicidal ideation: No - Past Medical History Cardiac Medical History: Denies: Hx Coronary Artery Disease, Hx Heart Attack, Hx Hypertension Pulmonary Medical History: Reports: Hx Bronchitis Denies: Hx Asthma, Hx COPD, Hx Pneumonia, Hx Tuberculosis Neurological Medical History: Reports: Hx Migraine. Denies: Hx Cerebrovascular Accident, Hx Seizures Renal/ Medical History: Denies: Hx Peritoneal Dialysis Musculoskeltal Medical History: Denies Hx Arthritis Psychiatric Medical History: Reports: Hx Anxiety, Hx Attention Deficit Hyperactivity Disorder, Hx Depression Past Surgical History: Reports: Hx Abdominal Surgery - Hernia repair with mesh, Hx Appendectomy, Hx Cholecystectomy, Hx Orthopedic Surgery - Right finger, Hx Tubal Ligation. Denies: Hx Pacemaker - Immunizations Hx Diphtheria, Pertussis, Tetanus Vaccination: Yes - 2009 Review of Systems - Review of Systems Notes: Constitutional: Negative for fever. HENT: Negative for sore throat. Eyes: Negative for visual changes. Cardiovascular: Negative for chest pain. Respiratory: Negative for shortness of breath. Gastrointestinal: Negative for abdominal pain, vomiting or diarrhea. Genitourinary: Negative for dysuria. Musculoskeletal: Negative for back pain. Skin: Positive for rash. Neurological: Negative for headaches, weakness or numbness. 10 point ROS negative except as marked above and in HPI. Physical Exam - Vital signs Vitals: Temp Pulse Resp BP Pulse Ox 97 F L 98 15 114/79 100 02/20/17 21:32 02/20/17 21:32 02/20/17 21:32 02/20/17 21:32 02/20/17 21:32 Interpretation: Normal Notes: PHYSICAL EXAMINATION: GENERAL: Well-appearing, well-nourished and in no acute distress. HEAD: Atraumatic, normocephalic. EYES: Pupils equal round and reactive to light, extraocular movements intact, sclera anicteric, conjunctiva are normal. ENT: nares patent, oropharynx clear without exudates. Moist mucous membranes. NECK: Normal range of motion, supple without lymphadenopathy LUNGS: Breath sounds clear to auscultation bilaterally and equal. No wheezes rales or rhonchi. HEART: Regular rate and rhythm without murmurs ABDOMEN: Soft, nontender, normoactive bowel sounds. No guarding, no rebound. No masses appreciated. EXTREMITIES: Normal range of motion, no pitting or edema. No cyanosis. NEUROLOGICAL: No focal neurological deficits. Moves all extremities spontaneously and on command. PSYCH: Normal mood, normal affect. SKIN: Warm, Dry, normal turgor, multiple ecchymosis over the bilateral forearms and antecubital fossae. There is a raised, erythematous area on the left antecubital fossa without any fluctuance. Course - Re-evaluation Re-evalutation: 02/20/17 23:18 Patient presents with concerns of heroin withdrawal. Last used approximately 12 hours ago. No acute suicidal or homicidal ideation. Patient does also have signs of a superficial thrombophlebitis on the left antecubital fossa which will be treated with cephalexin. Patient has been given a clonidine patch here in the emergency department. Will start on gabapentin at night, Zofran for nausea control. I have also provided patient with a list of outpatient resources for rehab. I have also informed the patient about increased success rates with use of Suboxone versus withdrawal in the absence of such assistive medications and have encouraged to evaluate these resources. At this time will discharge with return precautions and follow-up recommendations. Verbal discharge instructions given a the bedside and opportunity for questions given. Medication warnings reviewed. Patient is in agreement with this plan and has verbalized understanding of return precautions and the need for primary care follow-up in the next 24-72 hours. - Vital Signs Vital signs: Temp Pulse Resp BP Pulse Ox 97 F L 98 22 H 114/83 98 02/20/17 21:32 02/20/17 21:32 02/20/17 23:31 02/20/17 23:31 02/20/17 23:31 Discharge - Discharge Clinical Impression: Opiate withdrawal Superficial thrombophlebitis Qualifiers: Superficial thrombophlebitis-Involved body area: upper extremity Laterality: left Qualified Code(s): I80.8 - Phlebitis and thrombophlebitis of other sites Condition: Good Disposition: HOME, SELF-CARE Additional Instructions: Your seen today for concerns of withdrawing from opiates. Opiate withdrawal is very uncomfortable but is not dangerous. The acute withdrawal phase will last for approximately 1 week and will consist of body aches, headache, nausea, vomiting, diarrhea, and abdominal pain. Sleeping can be difficult. You may also feel depressed or anxious. After the acute withdrawal is finished, it is very common to have chronic opiate withdrawal that can last for months. This can consist of feeling depressed and having cravings for opiates. I strongly encourage you to enroll in an outpatient rehab program and consider going on a medication such as Suboxone to prevent relapse. To help manage your acute withdrawal symptoms your are being sent home with a clonidine patch on. You may keep this patch on for up to 1 week. You have also been sent home with a prescription for a medication called gabapentin. You may take 600 mg nightly again to assist with sleep and withdrawal symptoms. You may take the Zofran also known as ondansetron that she were sent home with as needed for nausea and vomiting. Please return if you become suicidal, have persistent vomiting that prevents you from being able to take fluids for more than 12 hours, you pass out , or you have any other symptoms that are worrisome to you. Your also being treated for an infection of 1 of the veins in your left arm. Please take antibiotics until completed. You should also return if you develop fevers with temperature greater than 101, persistent vomiting, worsening pain, or have any other symptoms that are concerning to you. Prescriptions: Gabapentin 600 mg PO QHS #20 tablet Butalb/Acetaminophen/Caffeine [Fioricet (50-325-40 mg) Tablet] 1 - 2 tab PO Q4H #20 tab Cephalexin Monohydrate [Keflex 500 mg Capsule] 500 mg PO Q6H 7 Days capsule
[2017-02-21 00:16] VITALS: BP 114/83
== END 2017-02-21 | disposition home or self-care (01) ==
LOC: ER 21:14
DX: F11.23 Opioid dependence with withdrawal (principal); I80.8 Phlebitis and thrombophlebitis of other sites; F17.200 Nicotine dependence, unspecified, uncomplicated
CPT/HCPCS: 99284; J3490 ×2

== ENCOUNTER 2017-02-23 16:57 | Emergency (ER) | payer SELFPAY ==
[2017-02-23 17:03] VITALS: BP 110/73
--- NOTE | 2017-02-23 17:23 | ER Document Report ---
ED Substance Abuse / Acc. OD - General Chief Complaint: Drug Abuse Stated Complaint: WITHDRAWALS Time Seen by Provider: 02/23/17 17:04 Mode of Arrival: Ambulatory Information source: Patient, Parent TRAVEL OUTSIDE OF THE [place] IN LAST 30 DAYS: No - HPI Patient complains to provider of: Drug withdrawal Onset: Other - 3 days Onset/Duration: Persistent, Worse Quality of pain: Achy Severity: Moderate Pain Level: 2 Notes: Patient is a 26-year-old female who presents to the emergency room with her father with complaints of withdrawal from heroin, states her last use was 3 days ago and she has not followed up to get into detox or rehab program or any methadone or Suboxone clinic, she states that she does not want to go away to a detox or rehab program and she has no money to get into a methadone or Suboxone clinic, patient denies any suicidal or homicidal ideation, she is reporting body aches with nausea and cravings for heroin, she does have some mild swelling in her left antecubital fossa which is consistent with superficial thrombophlebitis, she was seen in this department approximately 3 days ago and prescribed multiple medications to deal with her symptoms as well as Keflex to prevent an infection at the site of thrombophlebitis, patient is accompanied by her father who seems quite angry with her that she has not followed up and gotten herself into detox or rehab and is requesting that we IVC patient and force her into a program - Related Data Allergies/Adverse Reactions: acetaminophen [From Tylenol-Codeine] Adverse Reaction (Intermediate, Verified 12:52) Shortness of Breath codeine phosphate [From Tylenol-Codeine] Adverse Reaction (Intermediate, Verified 12/23/16 12:52) Shortness of Breath Past Medical History - General Information source: Patient, Parent - Social History Smoking Status: Unknown if Ever Smoked Drug Abuse: Heroin Family History: Reviewed & Not Pertinent Patient has suicidal ideation: No Patient has homicidal ideation: No - Past Medical History Cardiac Medical History: Denies: Hx Coronary Artery Disease, Hx Heart Attack, Hx Hypertension Pulmonary Medical History: Reports: Hx Bronchitis Denies: Hx Asthma, Hx COPD, Hx Pneumonia, Hx Tuberculosis Neurological Medical History: Reports: Hx Migraine. Denies: Hx Cerebrovascular Accident, Hx Seizures Renal/ Medical History: Denies: Hx Peritoneal Dialysis Musculoskeltal Medical History: Denies Hx Arthritis Psychiatric Medical History: Reports: Hx Anxiety, Hx Attention Deficit Hyperactivity Disorder, Hx Depression Past Surgical History: Reports: Hx Abdominal Surgery - Hernia repair with mesh, Hx Appendectomy, Hx Cholecystectomy, Hx Orthopedic Surgery - Right finger, Hx Tubal Ligation. Denies: Hx Pacemaker - Immunizations Hx Diphtheria, Pertussis, Tetanus Vaccination: Yes - 2009 Review of Systems - Review of Systems Constitutional: No symptoms reported EENT: No symptoms reported Cardiovascular: No symptoms reported Respiratory: No symptoms reported Gastrointestinal: Nausea Genitourinary: No symptoms reported Female Genitourinary: No symptoms reported Musculoskeletal: See HPI Skin: No symptoms reported Hematologic/Lymphatic: No symptoms reported Neurological/Psychological: No symptoms reported -: Yes All other systems reviewed and negative Physical Exam - Vital signs Vitals: Temp Pulse Resp BP Pulse Ox 98.4 F 75 16 110/73 100 02/23/17 16:59 02/23/17 16:59 02/23/17 16:59 02/23/17 16:59 02/23/17 16:59 - Notes Notes: - General General appearance: Appears well, Alert In distress: None - HEENT Head: Normocephalic, Atraumatic Eyes: Normal Conjunctiva: Normal Extraocular movements intact: Yes Eyelashes: Normal Pupils: PERRL - Respiratory Respiratory status: No respiratory distress - Cardiovascular Rhythm: Regular - Abdominal Inspection: Normal - Back Back: Normal - Extremities General upper extremity: Mild erythema with firmness in the left antecubital fossa consistent with superficial thrombophlebitis General lower extremity: Normal inspection - Neurological Neuro grossly intact: Yes Orientation: AAOx4 Vikram Coma Scale Eye Opening: Spontaneous Vikram Coma Scale Verbal: Oriented Vikram Coma Scale Motor: Obeys Commands Vikram Coma Scale Total: 15 - Psychological Associated symptoms: Normal affect, Normal mood - Skin Skin Temperature: Warm Skin Moisture: Dry Skin Color: Normal Course - Re-evaluation Re-evalutation: 02/23/17 17:33 Patient was provided with resources to follow-up and get assistance with detoxing from heroin, including information for mental health and drug addiction treatment services in the area and information to follow-up with the [place] [facility] for possible methadone treatment, her father was quite angry that we would not IVC patient and place her in a drug rehab program , I attempted to explain to him that she does not meet IVC criteria for drug abuse, patient continued to deny being suicidal or homicidal, I offered to provide her with IV fluids and nonnarcotic medications to assist in her symptom relief, but she stated she has medications at home and she will attempt to follow-up to get further assistance tomorrow, she was quite reluctant to entering an actual drug treatment program stating that her daughter's birthday is coming up very soon and mentioning other excuses as to why she cannot go into a drug treatment program, patient was advised to return at any time should her symptoms worsen or she require any additional assistance, patient acknowledges understanding and agreement with this plan - Vital Signs Vital signs: Temp Pulse Resp BP Pulse Ox 98.4 F 75 16 110/73 100 02/23/17 16:59 02/23/17 16:59 02/23/17 16:59 02/23/17 16:59 02/23/17 16:59 Discharge - Discharge Clinical Impression: Opiate withdrawal Condition: Stable Disposition: HOME, SELF-CARE Instructions: Narcotic Abuse ([facility]), Pain Control without Medication ([facility]) Additional Instructions: Follow-up with substance abuse treatment services to get additional assistance with detox and rehab. Return to the emergency room immediately if any additional concerns.
== END 2017-02-23 17:30 | disposition home or self-care (01) ==
LOC: ER 16:57
DX: F11.23 Opioid dependence with withdrawal (principal); R11.0 Nausea; R52 Pain, unspecified; M79.89 Other specified soft tissue disorders; L53.9 Erythematous condition, unspecified
CPT/HCPCS: 99283

== ENCOUNTER 2017-05-27 08:36 | Emergency (ER) | payer SELFPAY ==
[2017-05-27] MEDS ORDERED: NORMAL SALINE 1000 ML 1,000 ML IV ONE (09:53)
--- NOTE | 2017-05-27 09:56 | ER Document Report ---
ED Medical Screen (RME) - General Chief Complaint: Neck Pain >24hrs old Stated Complaint: VOMITING Time Seen by Provider: 05/27/17 09:45 Mode of Arrival: Ambulatory Information source: Patient Notes: Patient is a 26 year old female presenting to the emergency department complaining of neck pain onset last night with associated symptoms of nausea, vomiting, blurry vision, and eye pain (which she describes as heavy). Patient states she was looking at TV last night when her neck pain was onset suddenly that radiated into her head and shoulders. Patient also complains of blisters on her upper lip and on her gums onset yesterday as well. 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 Patient states that she is around 2 months clean of heroin and meth. TRAVEL OUTSIDE OF THE [place] IN LAST 30 DAYS: No - Related Data Allergies/Adverse Reactions: codeine phosphate [From Tylenol-Codeine] Adverse Reaction (Intermediate, Verified 05/27/17 08:39) Shortness of Breath Past Medical History - Social History Chew tobacco use (# tins/day): No Frequency of alcohol use: None Drug Abuse: None - Past Medical History Cardiac Medical History: Denies: Hx Coronary Artery Disease, Hx Heart Attack, Hx Hypertension Pulmonary Medical History: Reports: Hx Bronchitis Denies: Hx Asthma, Hx COPD, Hx Pneumonia, Hx Tuberculosis Neurological Medical History: Reports: Hx Migraine. Denies: Hx Cerebrovascular Accident, Hx Seizures Renal/ Medical History: Denies: Hx Peritoneal Dialysis Musculoskeltal Medical History: Denies Hx Arthritis Psychiatric Medical History: Reports: Hx Anxiety, Hx Attention Deficit Hyperactivity Disorder, Hx Depression Past Surgical History: Reports: Hx Abdominal Surgery - Hernia repair with mesh, Hx Appendectomy, Hx Cholecystectomy, Hx Orthopedic Surgery - Right finger, Hx Tubal Ligation. Denies: Hx Pacemaker - Immunizations Hx Diphtheria, Pertussis, Tetanus Vaccination: Yes - 2009 Physical Exam - Vital signs Vitals: Temp Pulse Resp BP Pulse Ox 97.9 F 83 16 115/79 100 05/27/17 08:42 05/27/17 08:42 05/27/17 08:42 05/27/17 08:42 05/27/17 08:42 - General General appearance: Alert, Other - appears uncomfortable. In distress: None - HEENT Head: Normocephalic, Atraumatic Mouth/Lips: Other - vesicular lesions above [place] border. Course - Vital Signs Vital signs: Temp Pulse Resp BP Pulse Ox 97.9 F 83 16 115/79 100 05/27/17 08:42 05/27/17 08:42 05/27/17 08:42 05/27/17 08:42 05/27/17 08:42
[2017-05-27 10:47] LABS: ABSOLUTE EOSINOPHILS # (AUTO) 0.1 10^3/uL (0.0-0.6); ABSOLUTE LYMPHOCYTES (AUTO) 0.8 10^3/uL (0.5-4.7); ABSOLUTE MONOCYTES (AUTO) 0.7 10^3/uL (0.1-1.4); ABSOLUTE NEUT (AUTO) 4.3 10^3/uL (1.7-8.2); BASOPHILS % (AUTO) 0.8 % (0-2); EOSINOPHILS % (AUTO) 1.2 % (0-6); HEMOGLOBIN 14.1 g/dL (12.0-15.5); LYMPHOCYTES % (AUTO) 13.9 % (13-45); MEAN CORPUSCULAR HEMOGLOBIN 28.7 pg (27.0-33.4); MEAN CORPUSCULAR HGB CONC 33.6 g/dL (32.0-36.0); MEAN CORPUSCULAR VOLUME 86 fl (80-97); MONOCYTES % (AUTO) 11.3 % (3-13); PLATELET COUNT 293 10^3/uL (150-450); RED BLOOD COUNT 4.91 10^6/uL (3.72-5.28); RED CELL DISTRIBUTION WIDTH 15.7 % (11.5-14.0); SEGMENTED NEUTROPHILS % (AUTO) 72.8 % (42-78); TOTAL CELLS COUNTED % (AUTO) 100 %
--- NOTE | 2017-05-27 10:49 | RADIOLOGY REPORT (SQ) ---
EXAM DESCRIPTION: CHEST SINGLE VIEW COMPLETED DATE/TIME: 05/27/2017 10:31 am REASON FOR STUDY: med clearance COMPARISON: November 2016 EXAM PARAMETERS: NUMBER OF VIEWS: One view. TECHNIQUE: Single frontal radiographic view of the chest acquired. RADIATION DOSE: NA LIMITATIONS: None. FINDINGS: LUNGS AND PLEURA: No opacities, masses or pneumothorax. No pleural effusion. MEDIASTINUM AND HILAR STRUCTURES: No masses. Contour normal. HEART AND VASCULAR STRUCTURES: Heart normal in size. Normal vasculature. BONES: No acute findings. HARDWARE: None in the chest. OTHER: No other significant finding. IMPRESSION: NO ACUTE RADIOGRAPHIC FINDING IN THE CHEST. TECHNICAL DOCUMENTATION: JOB ID: [id number] [employer]- All Rights Reserved
--- NOTE | 2017-05-27 10:51 | RADIOLOGY REPORT (SQ) ---
EXAM DESCRIPTION: CT HEAD WITHOUT COMPLETED DATE/TIME: 05/27/2017 10:38 am REASON FOR STUDY: headache, stiff neck, vesicular lesions in mouth COMPARISON: None. TECHNIQUE: Axial images acquired through the brain without intravenous contrast. Images reviewed wi th bone, brain and subdural windows. Images stored on PACS. All CT scanners at this facility use dose modulation, iterative reconstruction, and/or weight based d osing when appropriate to reduce radiation dose to as low as reasonably achievable (ALARA). [facility]: Dose Right [facility]: CareDose [facility]: Dose Right [facility]: Teradose 4D [facility]: [employer] RADIATION DOSE: CT Rad equipment meets quality standard of care and radiation dose reduction techniq ues were employed. CTDIvol: 64.6 mGy. DLP: 1163 mGy-cm. mGy. LIMITATIONS: None. FINDINGS: VENTRICLES: Normal size and contour. CEREBRUM: No masses. No hemorrhage. No midline shift. No evidence for acute infarction. Normal gra y/white matter differentiation. No areas of low density in the white matter. CEREBELLUM: No masses. No hemorrhage. No alteration of density. No evidence for acute infarction. EXTRAAXIAL SPACES: No fluid collections. No masses. ORBITS AND GLOBE: No intra- or extraconal masses. Normal contour of globe without masses. CALVARIUM: No fracture. PARANASAL SINUSES: No fluid or mucosal thickening. SOFT TISSUES: No mass or hematoma. OTHER: No other significant finding. IMPRESSION: NORMAL BRAIN CT WITHOUT CONTRAST. EVIDENCE OF ACUTE STROKE: NO. COMMENT: Quality ID # [id number]: Final reports with documentation of one or more dose reduction techniques (e.g., Automated exposure control, adjustment of the mA and/or kV according to patient size, use of iterative reconstruction technique) TECHNICAL DOCUMENTATION: JOB ID: [id number] [employer]- All Rights Reserved
[2017-05-27 11:00] LABS: ALANINE AMINOTRANSFERASE 72 U/L (9-52); ALBUMIN 4.8 g/dL (3.5-5.0); ALKALINE PHOSPHATASE 68 U/L (38-126); ANION GAP 10 (5-19); ASPARTATE AMINO TRANSFERASE 56 U/L (14-36); BILIRUBIN,DIRECT 0.2 mg/dL (0.0-0.4); BILIRUBIN,TOTAL 0.7 mg/dL (0.2-1.3); BLOOD UREA NITROGEN 12 mg/dL (7-20); CALCIUM 10.6 mg/dL (8.4-10.2); CARBON DIOXIDE 28 mmol/L (22-30); CHLORIDE 104 mmol/L (98-107); GLUCOSE 91 mg/dL (75-110); SODIUM 141.9 mmol/L (137-145)
[2017-05-27 11:19] LABS: APPEARANCE,URINE SLIGHTLY-CLOUDY; BILIRUBIN,URINE NEGATIVE (NEGATIVE); COLOR,URINE YELLOW; GLUCOSE, URINE NEGATIVE (NEGATIVE); KETONES,URINE NEGATIVE (NEGATIVE); LEUKOCYTE ESTERASE,URINE NEGATIVE (NEGATIVE); NITRITE,URINE NEGATIVE (NEGATIVE); PROTEIN,URINE NEGATIVE (NEGATIVE); URINE SPECIFIC GRAVITY 1.017; UROBILINOGEN,URINE NEGATIVE mg/dL (<2.0)
[2017-05-27 11:35] LABS: URINE BARBITURATES SCREEN NEGATIVE; URINE BENZODIAZEPINES SCREEN NEGATIVE; URINE COCAINE SCREEN NEGATIVE; URINE MARIJUANA (THC) SCREEN NEGATIVE; URINE METHADONE SCREEN NEGATIVE; URINE PHENCYCLIDINE SCREEN NEGATIVE
[2017-05-27] MEDS ORDERED: ACETAMINOPHEN 325 MG TABLET PO ONE (11:53)
[2017-05-27] MEDS ORDERED: KETOROLAC TROMETHAMINE INJ/PF 30 MG/1 ML SDV IV ONE (12:31)
[2017-05-27] MEDS ORDERED: LIDOCAINE 1%/EPINEPHRINE INJ 20 ML VIAL INJ ONE ×2 (12:33)
--- NOTE | 2017-05-27 12:33 | ER Document Report ---
ED General - General Chief Complaint: Neck Pain >24hrs old Stated Complaint: VOMITING Time Seen by Provider: 05/27/17 09:45 Mode of Arrival: Ambulatory Notes: 26-year-old female with a history of labial herpes, presents with abrupt onset headache and neck pain last night, severe kept her up all night, neck stiffness no photophobia but positive fevers chills and "spots" that she says appear on her face. There is no appreciable rash. She also has a fever blister on her upper lip. She denies focal neurologic signs other than tingling in the palms and soles of her hands and feet. She denies injection drug use but has been clean from heroin for 2 months. TRAVEL OUTSIDE OF THE [place] IN LAST 30 DAYS: No - Related Data Allergies/Adverse Reactions: codeine phosphate [From Tylenol-Codeine] Adverse Reaction (Intermediate, Verified 05/27/17 08:39) Shortness of Breath Past Medical History - General Information source: Patient - Social History Smoking Status: Never Smoker Chew tobacco use (# tins/day): No Frequency of alcohol use: None Drug Abuse: None Family History: Reviewed & Not Pertinent Patient has suicidal ideation: No Patient has homicidal ideation: No - Past Medical History Cardiac Medical History: Denies: Hx Coronary Artery Disease, Hx Heart Attack, Hx Hypertension Pulmonary Medical History: Reports: Hx Bronchitis Denies: Hx Asthma, Hx COPD, Hx Pneumonia, Hx Tuberculosis Neurological Medical History: Reports: Hx Migraine. Denies: Hx Cerebrovascular Accident, Hx Seizures Renal/ Medical History: Denies: Hx Peritoneal Dialysis Musculoskeltal Medical History: Denies Hx Arthritis Psychiatric Medical History: Reports: Hx Anxiety, Hx Attention Deficit Hyperactivity Disorder, Hx Depression Past Surgical History: Reports: Hx Abdominal Surgery - Hernia repair with mesh, Hx Appendectomy, Hx Cholecystectomy, Hx Orthopedic Surgery - Right finger, Hx Tubal Ligation. Denies: Hx Pacemaker - Immunizations Hx Diphtheria, Pertussis, Tetanus Vaccination: Yes - 2009 Review of Systems - Review of Systems Notes: REVIEW OF SYSTEMS GEN: Denies fever, chills, weight loss ENT: Denies sore throat, nasal discharge, ear pain EYES: Denies blurry vision, eye pain, discharge CV: Denies chest pain, palpitations, edema RESP: Denies cough, shortness of breath, wheezing GI: Denies abdominal pain, nausea, vomiting, diarrhea MSK: Denies joint pain/swelling, edema, positive neck pain and stiffness SKIN: Denies rash, skin lesions LYMPH: Denies swollen glands/lymph nodes NEURO: Headache hand tingling, foot tingling PSYCH: Denies depression, suicidal or homicidal ideation PHYSICAL EXAMINATION General: No acute distress, well-nourished Head: Atraumatic, normocephalic ENT: Mouth normal, oropharynx moist, no exudates or tonsillar enlargement. Herpes lesion left upper lip. No spots or rash appreciated on the head or face. Eyes: Conjunctiva normal, pupils equal, lids normal Neck: No JVD, supple, no guarding CVS: Normal rate, regular rhythm, no. Mild stiffness. Murmurs Resp: No resp distress, equal and normal breath sounds bilaterally GI: Nondistended, soft, no tenderness to palpation, no rebound or guarding Ext: No deformities, no edema, normal range of motion in upper and lower ext Back: No CVA or midline TTP Skin: No rash, warm. Lymphatic: No lymphadeopathy noted Neuro: Awake, alert. Face symmetric. GCS 15. Physical Exam - Vital signs Vitals: Temp Pulse Resp BP Pulse Ox 97.9 F 83 16 115/79 100 05/27/17 08:42 05/27/17 08:42 05/27/17 08:42 05/27/17 08:42 05/27/17 08:42 Course - Re-evaluation Re-evalutation: 05/27/17 12:34 18-year-old female presented fever chills headache and neck stiffness along with hand and foot tingling concerning for meningitis versus flu. She does not have specific clinical symptoms consistent with encephalitis such as altered mental status. She was seen at triage and every test was ordered including chest x-ray blood work serology for herpes and a head CT. These are all normal. Her white count is normal. That is that I am still slightly concerned. Flu test will be sent, as this may explain her symptoms other than meningitis. 05/27/17 14:52 CSF shows no signs of pleocytosis. Patient is requesting Fioricet. She probably has a migraine. She will be given Fioricet and discharged home. Her flu and other studies were also negative.I have discussed with the patient there likely diagnosis, aftercare plan, follow-up plans and my usual and customary return precautions. They verbalized understanding of this. - Vital Signs Vital signs: Temp Pulse Resp BP Pulse Ox 97.9 F 83 19 135/79 H 98 05/27/17 08:42 05/27/17 08:42 05/27/17 13:31 05/27/17 13:31 05/27/17 13:31 - Laboratory Result Diagrams: 05/27/17 10:20 05/27/17 10:20 Laboratory results interpreted by me: 05/27/17 05/27/17 05/27/17 10:20 10:20 13:25 RDW 15.7 H Calcium 10.6 H AST 56 H ALT 72 H CSF WBC 8 H - Diagnostic Test Radiology reviewed: Image reviewed, Reports reviewed Procedures - Lumbar Puncture Lumbar puncture Time completed: 14:00 Consent obtained: Yes Lumbar puncture pre-procedure: Sterile PPE donned, Betadine prep applied, Sterile drapes applied Patient position: Sitting Needle size: 22 - sprotte atraumatic needle Lumbar puncture location: L4 Anesthetic type: 1% Lidocaine w/epi mL's of anesthetic: 5 Amount/type of drainage: Total 5 mL clear CSF. Number of attempts: 1 Complications: No Discharge - Discharge Clinical Impression: Headache Qualifiers: Headache type: unspecified Headache chronicity pattern: unspecified pattern Intractability: not intractable Qualified Code(s): R51 - Headache Condition: Good Disposition: HOME, SELF-CARE Instructions: Migraine Headache ([facility]) Additional Instructions: Please follow-up with your primary care doctor for ongoing management of her headache syndrome, which is probably migraine. He lumbar puncture today was normal. Please return to the ER for worsening headache vertigo vomiting or other signs that she need to have a blood patch as you have before.
[2017-05-27] MEDS ORDERED: MIDAZOLAM 2 MG/2 ML INJ IV ONE (12:38)
[2017-05-27 13:07] LABS: A TYPE INFLUENZA AG NEGATIVE (NEGATIVE); B INFLUENZA AG NEGATIVE (NEGATIVE)
[2017-05-27 14:12] LABS: GLUCOSE,CSF 53 mg/dL (40-70); PROTEIN,CSF 48 mg/dL (12-60)
[2017-05-27 14:32] LABS: APPEARANCE ALL TUBES CLEAR; COLOR ALL TUBES COLORLESS; CSF TUBE NUMBER 1; VOLUME TUBE 1 0.5 CC; VOLUME TUBE 2 0.8 CC
[2017-05-27 14:33] LABS: APPEARANCE ALL TUBES CLEAR; COLOR ALL TUBES COLORLESS; CSF TOTAL VOLUME 3.3 CC; CSF TUBE NUMBER 4; RED BLOOD CELL,CSF 582 /uL (0-10); WHITE BLOOD CELL,CSF 8 /uL (0-5)
[2017-05-27 14:34] LABS: CSF TOTAL VOLUME 3.3 CC; RED BLOOD CELL,CSF 1 /uL (0-10); VOLUME TUBE 1 0.5 CC; VOLUME TUBE 2 0.8 CC; WHITE BLOOD CELL,CSF 2 /uL (0-5)
[2017-05-27] MEDS ORDERED: BUTALB/ACETAMINOPHEN/CAFFEINE 1 TAB EACH PO ONE (14:48)
[2017-05-27 15:32] VITALS: BP 119/82
[2017-05-28 18:37] LABS: HSV I DNA Negative (Negative)
[2017-05-29 07:10] LABS: HSV II DNA Negative (Negative)
== END 2017-05-27 15:20 | disposition home or self-care (01) ==
LOC: ER 08:36
PROC: 009U3ZX Drainage of Spinal Canal, Percutaneous Approach, Diagnostic (ICD-10-PCS; principal; 2017-05-27)
DX: R51 Headache (principal); M54.2 Cervicalgia; R11.10 Vomiting, unspecified
CPT/HCPCS: 99284; 96361; 96374; 87529; 36415; 87040; 87070; 87205; 83605; 84703; 85025; 89050; 82945; 84157; 80053; 81001; 80307; 87804; 71045; 70450; 62270; J2250; J3490 ×2; J1885; J7030

== ENCOUNTER 2017-05-28 17:32 | Emergency (ER) | payer SELFPAY ==
[2017-05-28] MEDS ORDERED: ONDANSETRON HCL INJ/PF 4 MG/2 ML SDV IV ONE ×2 (18:01→20:39)
[2017-05-28] MEDS ORDERED: BUTALB/ACETAMINOPHEN/CAFFEINE 1 TAB EACH PO ONE (18:01)
[2017-05-28] MEDS ORDERED: NORMAL SALINE 1000 ML 1,000 ML IV ONE ×2 (18:01→20:39)
[2017-05-28] MEDS ORDERED: KETOROLAC TROMETHAMINE INJ/PF 30 MG/1 ML SDV IV ONE (18:03)
--- NOTE | 2017-05-28 18:03 | ER Document Report ---
ED Medical Screen (RME) - General Chief Complaint: Headache Stated Complaint: SPINAL FLUID LEAKAGE Time Seen by Provider: 05/28/17 17:53 Information source: Patient Notes: Patient was evaluated yesterday in the emergency department for possible meningitis. Patient had a lumbar puncture performed. Patient states today every time she stands up she has sudden worsening of headache with sudden onset of nausea and vomiting. Patient states she is vomited numerous times. Patient states she last took Motrin at 1 PM today. Patient does have a previous history of IV heroin drug use but has been clean for the past 2 months. hx: Tubal ligation, appendectomy, cholecystectomy, orthopedic surgery, hernia repair I have greeted and performed a rapid initial assessment of this patient. A comprehensive ED assessment and evaluation of the patient, analysis of test results and completion of the medical decision making process will be conducted by additional ED providers. TRAVEL OUTSIDE OF THE [place] IN LAST 30 DAYS: No - Related Data Allergies/Adverse Reactions: codeine phosphate [From Tylenol-Codeine] Adverse Reaction (Intermediate, Verified 05/28/17 17:36) Shortness of Breath Past Medical History - Past Medical History Cardiac Medical History: Denies: Hx Coronary Artery Disease, Hx Heart Attack, Hx Hypertension Pulmonary Medical History: Reports: Hx Bronchitis Denies: Hx Asthma, Hx COPD, Hx Pneumonia, Hx Tuberculosis Neurological Medical History: Reports: Hx Migraine. Denies: Hx Cerebrovascular Accident, Hx Seizures Renal/ Medical History: Denies: Hx Peritoneal Dialysis Musculoskeltal Medical History: Denies Hx Arthritis Psychiatric Medical History: Reports: Hx Anxiety, Hx Attention Deficit Hyperactivity Disorder, Hx Depression Past Surgical History: Reports: Hx Abdominal Surgery - Hernia repair with mesh, Hx Appendectomy, Hx Cholecystectomy, Hx Orthopedic Surgery - Right finger, Hx Tubal Ligation. Denies: Hx Pacemaker - Immunizations Hx Diphtheria, Pertussis, Tetanus Vaccination: Yes - 2009 Physical Exam - Vital signs Vitals: Temp Pulse Resp BP Pulse Ox 97.3 F 62 16 135/81 H 100 05/28/17 17:44 05/28/17 17:44 05/28/17 17:44 05/28/17 17:44 05/28/17 17:44 - Neurological Neuro grossly intact: Yes Cognition: Normal [place] Coma Scale Eye Opening: Spontaneous Vikram Coma Scale Verbal: Oriented Vikram Coma Scale Motor: Obeys Commands Vikram Coma Scale Total: 15 Course - Vital Signs Vital signs: Temp Pulse Resp BP Pulse Ox 97.3 F 62 16 135/81 H 100 05/28/17 17:44 05/28/17 17:44 05/28/17 17:44 05/28/17 17:44 05/28/17 17:44
[2017-05-28 19:00] LABS: ABSOLUTE EOSINOPHILS # (AUTO) 0.1 10^3/uL (0.0-0.6); ABSOLUTE MONOCYTES (AUTO) 0.8 10^3/uL (0.1-1.4); ABSOLUTE NEUT (AUTO) 4.4 10^3/uL (1.7-8.2); BASOPHILS % (AUTO) 0.5 % (0-2); EOSINOPHILS % (AUTO) 1.8 % (0-6); HEMATOCRIT 41.4 % (36.0-47.0); HEMOGLOBIN 13.9 g/dL (12.0-15.5); MEAN CORPUSCULAR HEMOGLOBIN 28.5 pg (27.0-33.4); MEAN CORPUSCULAR HGB CONC 33.5 g/dL (32.0-36.0); MEAN CORPUSCULAR VOLUME 85 fl (80-97); MONOCYTES % (AUTO) 12.2 % (3-13); PLATELET COUNT 258 10^3/uL (150-450); RED BLOOD COUNT 4.85 10^6/uL (3.72-5.28); RED CELL DISTRIBUTION WIDTH 15.7 % (11.5-14.0); SEGMENTED NEUTROPHILS % (AUTO) 69.5 % (42-78); TOTAL CELLS COUNTED % (AUTO) 100 %; WHITE BLOOD COUNT 6.4 10^3/uL (4.0-10.5)
[2017-05-28 19:13] LABS: ALANINE AMINOTRANSFERASE 359 U/L (9-52); ALBUMIN 4.8 g/dL (3.5-5.0); ALKALINE PHOSPHATASE 72 U/L (38-126); ANION GAP 12 (5-19); ASPARTATE AMINO TRANSFERASE 303 U/L (14-36); BILIRUBIN,DIRECT 0.5 mg/dL (0.0-0.4); BILIRUBIN,TOTAL 0.9 mg/dL (0.2-1.3); BLOOD UREA NITROGEN 10 mg/dL (7-20); CALCIUM 10.2 mg/dL (8.4-10.2); CARBON DIOXIDE 25 mmol/L (22-30); CHLORIDE 106 mmol/L (98-107); GLUCOSE 87 mg/dL (75-110); LIPASE 52.2 U/L (23-300); POTASSIUM 3.6 mmol/L (3.6-5.0); SODIUM 142.5 mmol/L (137-145); TOTAL PROTEIN 7.9 g/dL (6.3-8.2)
[2017-05-28] MEDS ORDERED: SUMATRIPTAN SUCCINATE INJ/PF 6 MG/0.5 ML SDV SUBCUT ONE (19:51)
--- NOTE | 2017-05-28 19:56 | ER Document Report ---
ED Headache - General Mode of Arrival: Wheelchair Information source: Patient TRAVEL OUTSIDE OF THE [place] IN LAST 30 DAYS: No <HU SEGURA - Last Filed: 05/29/17 00:51> <LORETA RUIZ - Last Filed: 05/29/17 11:48> - General Chief Complaint: Headache Stated Complaint: SPINAL FLUID LEAKAGE Time Seen by Provider: 05/28/17 17:53 Notes: Patient is a 26-year-old female who presents to the ER today for worsening headache with vomiting after having a lumbar puncture yesterday around 3 PM. Patient states that she usually has to have a blood patch after she gets "tapped." Patient had the lumbar puncture yesterday here in the emergency department to rule out meningitis. Patient states that she has many years of ongoing migraines that she "cannot get anyone to figure out." Patient states she has seen neurology but is never received an MRI of her head, CAT scans only. Patient states that Fioricet is been the only thing that has ever helped her. She takes at least 10 Tylenol with caffeine [id number] at a time to get rid of her headaches. She has been taking these since her headache worsened around 2 PM today. Patient states that she cannot sit up or stand up without having a "throbbing" headache and vomiting profusely. She states that lying flat relieves her symptoms. She denies fever. (HU SEGURA) - Related Data Allergies/Adverse Reactions: codeine phosphate [From Tylenol-Codeine] Adverse Reaction (Intermediate, Verified 05/28/17 19:08) Shortness of Breath Past Medical History - General Information source: Patient - Social History Smoking Status: Unknown if Ever Smoked Chew tobacco use (# tins/day): No Frequency of alcohol use: None Drug Abuse: None Family History: Reviewed & Not Pertinent Patient has suicidal ideation: No Patient has homicidal ideation: No - Past Medical History Cardiac Medical History: Denies: Hx Coronary Artery Disease, Hx Heart Attack, Hx Hypertension Pulmonary Medical History: Reports: Hx Bronchitis Denies: Hx Asthma, Hx COPD, Hx Pneumonia, Hx Tuberculosis Neurological Medical History: Reports: Hx Migraine. Denies: Hx Cerebrovascular Accident, Hx Seizures Renal/ Medical History: Denies: Hx Peritoneal Dialysis Musculoskeltal Medical History: Denies Hx Arthritis Psychiatric Medical History: Reports: Hx Anxiety, Hx Attention Deficit Hyperactivity Disorder, Hx Depression Past Surgical History: Reports: Hx Abdominal Surgery - Hernia repair with mesh, Hx Appendectomy, Hx Cholecystectomy, Hx Orthopedic Surgery - Right finger, Hx Tubal Ligation. Denies: Hx Pacemaker - Immunizations Hx Diphtheria, Pertussis, Tetanus Vaccination: Yes - 2009 <HU SEGURA - Last Filed: 05/29/17 00:51> Review of Systems - Review of Systems Constitutional: No symptoms reported EENT: No symptoms reported Cardiovascular: No symptoms reported Respiratory: No symptoms reported Gastrointestinal: See HPI Genitourinary: No symptoms reported Female Genitourinary: No symptoms reported Musculoskeletal: No symptoms reported Skin: No symptoms reported Hematologic/Lymphatic: No symptoms reported Neurological/Psychological: See HPI <HU SEGURA - Last Filed: 05/29/17 00:51> Physical Exam <HU SEGURA - Last Filed: 05/29/17 00:51> <LORETA RUIZ - Last Filed: 05/29/17 11:48> - Vital signs Vitals: Temp Pulse Resp BP Pulse Ox 97.3 F 62 16 135/81 H 100 05/28/17 17:44 05/28/17 17:44 05/28/17 17:44 05/28/17 17:44 05/28/17 17:44 - Notes Notes: PHYSICAL EXAMINATION: GENERAL: uncomfortable appearing, lying flat, but in no acute distress. HEAD: Atraumatic, normocephalic. EYES: Pupils equal round and reactive to light, extraocular movements intact, sclera anicteric, conjunctiva are normal. NECK: Normal range of motion, supple without lymphadenopathy LUNGS: CTAB and equal. No wheezes rales or rhonchi. HEART: Regular rate and rhythm without murmurs ABDOMEN: Soft, no tenderness. No guarding, no rebound BACK: lumbar vertebral tenderness, see extremities above EXTREMITIES: Normal range of motion of legs at hips, pt will not sit up for me due to headache/vomiting, no pitting edema. No cyanosis. good capillary refill distally to all extremities NEUROLOGICAL: Cranial nerves grossly intact. Normal sensory/motor exams. PSYCH: upset, anxious SKIN: Warm, Dry, normal turgor, no rashes or lesions noted (HU SEGURA) Course - Laboratory Result Diagrams: 05/28/17 18:49 05/28/17 18:49 <HU SEGURA - Last Filed: 05/29/17 00:51> - Laboratory Result Diagrams: 05/28/17 18:49 05/28/17 18:49 <LORETA RUIZ - Last Filed: 05/29/17 11:48> - Re-evaluation Re-evalutation: 05/28/17 19:56 Dr. Escamilla, anesthesiologist automatic centrifugal station operator states that he is too busy now, and to hold in her in the ER overnight and he'll be available in the morning around 10:30am to perform blood patch. He can be reached at [phone]. 05/28/17 22:35 Pt cannot sit up without immediate headache and vomiting. At this time patient will remain here in the emergency department awaiting blood patch in the morning lying flat. 05/28/17 22:36 05/29/17 00:51 pt anxious, given ativan, then complained of headache after getting up to urinate, given morphine, now complaining of itching, given benadryl. (HU SEGURA) 05/29/17 11:45 Pt with no new concerns or complaints. Anesthesiologist completed procedure with 1L saline as well. His directions are to lay supine, drink plenty of fluids/caffeine, head down, no heavy lifting. Reviewed with patient is in agreement with instructions. Patient understands to return to the ED with any worsening/concerning symptoms otherwise as reviewed discharge. Recheck with your PCM in 3-5 days. (LORETA RUIZ) - Vital Signs Vital signs: Temp Pulse Resp BP Pulse Ox 97.6 F 61 17 116/60 99 05/29/17 06:10 05/29/17 06:10 05/29/17 06:10 05/29/17 06:10 05/29/17 06:10 - Laboratory Laboratory results interpreted by me: 05/28/17 05/28/17 05/28/17 18:49 18:49 18:49 RDW 15.7 H Direct Bilirubin 0.5 H AST 303 H ALT 359 H Acetaminophen < 10 L Discharge <HU SEGURA - Last Filed: 05/29/17 00:51> <LORETA RUIZ - Last Filed: 05/29/17 11:48> - Discharge Clinical Impression: Spinal headache Condition: Stable Disposition: HOME, SELF-CARE Additional Instructions: Rest Remain supine with head down No heavy lifting Push fluids and drink plenty of caffeine Recheck with your PCM in 3-5 days Return to the ED with any worsening symptoms and/or development of fever, worsening headache, changes in behavior/speech/vision/mentation, chest pain, palpitations, syncope, shortness of breath, trouble breathing, abdominal pain, n /v/d, blood in stool/urine, loss of control of bowel/bladder, urinary retention , muscle weakness/paralysis, saddle anesthesia, numbness/tingling, or other worsening symptoms that are concerning to you. Referrals: STEPHANY MCMAHAN MD [[facility]] - Follow up as needed
[2017-05-28] MEDS ORDERED: GABAPENTIN 100 MG CAPSULE PO ONE (20:09)
[2017-05-28] MEDS ORDERED: MORPHINE SULFATE 10 MG/ML INJ IV ONE (20:39)
[2017-05-28] MEDS ORDERED: LORAZEPAM INJ 2 MG/1 ML VIAL IV ONE (22:26)
[2017-05-29] MEDS ORDERED: MORPHINE SULFATE 10 MG/ML INJ IV ONE ×3 (00:16→09:35)
[2017-05-29] MEDS ORDERED: ONDANSETRON HCL INJ/PF 4 MG/2 ML SDV IV ONE ×2 (00:16→10:13)
[2017-05-29] MEDS ORDERED: DIPHENHYDRAMINE HCL 50 MG/ML VIAL IV ONE (00:44)
[2017-05-29 11:56] VITALS: BP 114/71
== END 2017-05-29 11:50 | disposition home or self-care (01) ==
LOC: ER 17:32
DX: G97.1 Other reaction to spinal and lumbar puncture (principal); Y84.4 Aspiration of fluid as the cause of abnormal reaction of the patient, or of later complication, without mention of misadventure at the time of the procedure; F41.9 Anxiety disorder, unspecified; Z86.69 Personal history of other diseases of the nervous system and sense organs
CPT/HCPCS: 62273 ×2; 96376; 99284; 96372; 96361; 96374; 96375; 36415; 83690; 80307; 85025; 80053; 80074; J3490; J1200; J1885; J2270 ×2; J2060; J2405 ×2; J3030; J7030

== ENCOUNTER 2017-06-04 02:09 | Emergency (ER) | payer SELFPAY ==
[2017-06-04] MEDS ORDERED: CEPHALEXIN 500 MG CAPSULE PO ONE (03:05)
[2017-06-04] MEDS ORDERED: FLUCONAZOLE 100 MG TABLET PO ONE (03:06)
[2017-06-04] MEDS ORDERED: SULFAMETHOXAZOLE/TRIMETHOPRIM 800-160 MG TABLET PO ONE (03:06)
--- NOTE | 2017-06-04 03:15 | ER Document Report ---
ED General - General Chief Complaint: Possible infected tattoo Stated Complaint: ARM PAIN Time Seen by Provider: 06/04/17 03:02 Notes: Patient is a 18-year-old female presents with complaint of redness around the tattoo that she had placed in her left forearm 2 days ago. No fevers. Some nausea but no vomiting. No other complaints at this time. She denies any allergies to any medications. TRAVEL OUTSIDE OF THE [place] IN LAST 30 DAYS: No - Related Data Allergies/Adverse Reactions: codeine phosphate [From Tylenol-Codeine] Adverse Reaction (Intermediate, Verified 05/28/17 19:08) Shortness of Breath Past Medical History - Social History Smoking Status: Unknown if Ever Smoked Frequency of alcohol use: None Drug Abuse: None Family History: Reviewed & Not Pertinent Patient has suicidal ideation: No Patient has homicidal ideation: No - Past Medical History Cardiac Medical History: Denies: Hx Coronary Artery Disease, Hx Heart Attack, Hx Hypertension Pulmonary Medical History: Reports: Hx Bronchitis Denies: Hx Asthma, Hx COPD, Hx Pneumonia, Hx Tuberculosis Neurological Medical History: Reports: Hx Migraine. Denies: Hx Cerebrovascular Accident, Hx Seizures Renal/ Medical History: Denies: Hx Peritoneal Dialysis Musculoskeltal Medical History: Denies Hx Arthritis Psychiatric Medical History: Reports: Hx Anxiety, Hx Attention Deficit Hyperactivity Disorder, Hx Depression Past Surgical History: Reports: Hx Abdominal Surgery - Hernia repair with mesh, Hx Appendectomy, Hx Cholecystectomy, Hx Orthopedic Surgery - Right finger, Hx Tubal Ligation. Denies: Hx Pacemaker - Immunizations Hx Diphtheria, Pertussis, Tetanus Vaccination: Yes - 2009 Review of Systems - Review of Systems Notes: My Normal Review Basic REVIEW OF SYSTEMS: CONSTITUTIONAL : Denies fever, chills, or sweats. Denies recent illness. EENT: Denies eye, ear, throat, or mouth pain or symptoms. Denies nasal or sinus congestion. RESPIRATORY: Denies cough, cold, or chest congestion. Denies shortness of breath, difficulty breathing, or wheezing. GASTROINTESTINAL: Denies abdominal pain. Some nausea. MUSCULOSKELETAL: Denies neck or back pain or joint pain or swelling. SKIN: tattoo of the left forearm is infected. NEUROLOGICAL: Denies altered mental status or loss of consciousness. Denies headache. Denies weakness or paralysis or loss of use of either side. Denies problems with gait or speech. Denies sensory or motor loss. ALL OTHER SYSTEMS REVIEWED AND NEGATIVE. Physical Exam - Notes Notes: General Appearance: Well nourished, alert, cooperative, no acute distress, no obvious discomfort. Vitals: reviewed, See vital signs table. Abdomen: Normal BS, soft, No rigidity, No abdominal tenderness, No guarding, no rebound, no abdominal masses, no organomegaly Extremities: strength 5/5 in all extremities, good pulses in all extremities, some pain to palpation of the area of the tattoo. Pain is not out of proportion to exam. No crepitance., no edema. Skin: Patient has redness around that had to the left forearm. There is no associated swelling. It is tender to palpation. Redness does not extend more than a centimeter beyond the tattoo. Neuro: speech clear, oriented x 3, normal affect, responds appropriately to questions. Course - Re-evaluation Re-evalutation: 06/04/17 04:09 Patient has what appears to be a simple cellulitis associated with her tattoo. There is no evidence of abscess. There is no evidence of necrotizing fasciitis. Will place her on antibiotics. I encouraged her return to ER immediately if she has spreading redness, swelling, or increasing pain. Patient agrees with plan will be discharged home. Dictation of this chart was performed using voice recognition software; therefore, there may be some unintended grammatical errors. Discharge - Discharge Clinical Impression: Cellulitis Qualifiers: Site of cellulitis: extremity Site of cellulitis of extremity: upper extremity Laterality: left Qualified Code(s): L03.114 - Cellulitis of left upper limb Condition: Good Disposition: HOME, SELF-CARE Additional Instructions: CELLULITIS: You have an infection of your skin and underlying soft tissues called cellulitis. This is due to bacteria, which can enter through any break in the skin, or even through an irritated hair follicle. Untreated, cellulitis will usually worsen. Antibiotics are required. Usually, warm packs or warm soaks, and elevation of the infected area are recommended. You should start getting better within 24 to 36 hours. Most infections respond quickly to the right medication. Follow-up care is important, however, to check for abscess (boil) formation, unsuspected foreign body, or resistant infection. If you develop fever, chills, or if the area of infection is becoming rapidly more swollen or painful, call the doctor at once. ANTIBIOTIC THERAPY: You have been given an antibiotic prescription. It's important that you take all the medication, unless instructed otherwise by your physician. Failure to complete the entire course can result in relapse of your condition. Common side effects of antibiotics include nausea, intestinal cramping, or diarrhea. Women may develop vaginal yeast infections, and babies can get yeast (thrush) in the mouth following the use of antibiotics. Contact your physician if you develop significant side effects from this medication. Allergy to this antibiotic can result in hives, wheezing, faintness, or itching. If symptoms of allergy occur, stop the medication and call the doctor. TRIMETHOPRIM-SULFA: You have been given a prescription for trimethoprim-sulfa (TMS, Septra, Bactrim). This is a combination antibiotic of the sulfa class, often used for urinary tract infections, middle ear infections, bronchitis, shigella intestinal infection, and Pneumocystis pneumonia. TMS is usually well-tolerated. Occasional side effects include nausea and decreased appetite. Septra is not recommended for infants less than two months of age. Do not take this medication if you have experienced severe side effects or allergy to sulfa medicine. You should stop this medicine at once and contact your physician if you develop any rash, joint pain, shortness of breath, bruising, or jaundice ( yellow color in the skin), or if you develop any other new or unusual symptoms. FOLLOW-UP CARE: If you have been referred to a physician for follow-up care, call the physician s office for an appointment as you were instructed or within the next two days. If you experience worsening or a significant change in your symptoms, notify the physician immediately or return to the Emergency Department at any time for re-evaluation. Please return to the ER immediately if you develop worsening spreading redness, swelling, fevers, or feel unwell. Please stop taking the antibiotic and return to the ER if you develop a rash or have diarrhea. Prescriptions: Cephalexin Monohydrate [Keflex 500 mg Capsule] 500 mg PO Q6H 7 Days capsule Sulfamethoxazole/Trimethoprim [Bactrim Ds Tablet] 1 each PO BID #14 tablet Forms: Return to Work
[2017-06-04] MEDS ORDERED: ONDANSETRON ODT 4 MG TAB (6 TAB/ER DISP) PO PRN (04:00)
[2017-06-04 04:08] VITALS: BP 136/84
== END 2017-06-04 04:08 | disposition home or self-care (01) ==
LOC: ER 02:09
DX: L03.114 Cellulitis of left upper limb (principal); M79.602 Pain in left arm; R11.0 Nausea; Z88.6 Allergy status to analgesic agent; Z90.49 Acquired absence of other specified parts of digestive tract; Z98.51 Tubal ligation status
CPT/HCPCS: 99283

== ENCOUNTER 2020-01-19 21:46 | Emergency (ER) | payer SELFPAY ==
[2020-01-19] MEDS ORDERED: OXYCODONE-ACETAMINOPHEN 5-325 MG TABLET PO ONE (22:31)
[2020-01-19] MEDS ORDERED: ONDANSETRON 4 MG TAB.RAPDIS PO ONE (22:31)
--- NOTE | 2020-01-19 22:34 | ER Document Report ---
ED Medical Screen (RME) - General Chief Complaint: Flank Pain Stated Complaint: FLANK PAIN,NAUSEA,VOMITING Time Seen by Provider: 01/19/20 22:31 Mode of Arrival: Ambulatory Information source: Patient Notes: Patient is a 29-year-old female coming in today for evaluation of right-sided flank pain and dysuria. Patient reports that she has no history of kidney stones but has had multiple kidney infections. Patient states symptoms for about a week. Some nausea. No active vomiting. Reported fevers and chills. Physical exam General: Appears uncomfortable, nontoxic appearing Cardio regular rate and rhythm Pulmonary clear to auscultation, no respiratory distress Abdominal nondistended nontender. Negative CVA tenderness. Neuro: No focal deficits. I have greeted and performed a rapid initial assessment of this patient. A comprehensive ED assessment and evaluation of the patient, analysis of test results and completion of the medical decision making process will be conducted by additional ED providers. TRAVEL OUTSIDE OF THE [place] IN LAST 30 DAYS: No - Related Data Allergies/Adverse Reactions: codeine phosphate [From Tylenol-Codeine] Adverse Reaction (Intermediate, Verified 05/28/17 19:08) Shortness of Breath Past Medical History - Social History Frequency of alcohol use: Social Drug Abuse: None - Past Medical History Cardiac Medical History: Denies: Hx Coronary Artery Disease, Hx Heart Attack, Hx Hypertension Pulmonary Medical History: Reports: Hx Bronchitis Denies: Hx Asthma, Hx COPD, Hx Pneumonia, Hx Tuberculosis Neurological Medical History: Reports: Hx Migraine. Denies: Hx Cerebrovascular Accident, Hx Seizures Renal/ Medical History: Denies: Hx Peritoneal Dialysis Musculoskeltal Medical History: Denies Hx Arthritis Psychiatric Medical History: Reports: Hx Anxiety, Hx Attention Deficit Hyperactivity Disorder, Hx Depression Past Surgical History: Reports: Hx Abdominal Surgery - Hernia repair with mesh, Hx Appendectomy, Hx Cholecystectomy, Hx Orthopedic Surgery - Right finger, Hx Tubal Ligation. Denies: Hx Pacemaker - Immunizations Hx Diphtheria, Pertussis, Tetanus Vaccination: Yes - 2009 Physical Exam - Vital signs Vitals: Temp Pulse Resp BP Pulse Ox 98.0 F 98 20 113/75 95 01/19/20 21:53 01/19/20 21:53 01/19/20 21:53 01/19/20 21:53 01/19/20 21:53 Course - Vital Signs Vital signs: Temp Pulse Resp BP Pulse Ox 98.0 F 98 20 113/75 95 01/19/20 21:53 01/19/20 21:53 01/19/20 21:53 01/19/20 21:53 01/19/20 21:53
[2020-01-19 23:18] LABS: ABSOLUTE BASOPHILS # (AUTO) 0.1 10^3/uL (0.0-0.2); ABSOLUTE EOSINOPHILS # (AUTO) 0.2 10^3/uL (0.0-0.6); ABSOLUTE LYMPHOCYTES (AUTO) 2.2 10^3/uL (0.5-4.7); ABSOLUTE MONOCYTES (AUTO) 0.8 10^3/uL (0.1-1.4); ABSOLUTE NEUT (AUTO) 8.3 10^3/uL (1.7-8.2); BASOPHILS % (AUTO) 0.8 % (0-2); EOSINOPHILS % (AUTO) 1.8 % (0-6); HEMOGLOBIN 14.2 g/dL (12.0-15.5); LYMPHOCYTES % (AUTO) 18.7 % (13-45); MEAN CORPUSCULAR HEMOGLOBIN 30.8 pg (27.0-33.4); MEAN CORPUSCULAR HGB CONC 34.7 g/dL (32.0-36.0); MEAN CORPUSCULAR VOLUME 89 fl (80-97); MONOCYTES % (AUTO) 7.1 % (3-13); PLATELET COUNT 306 10^3/uL (150-450); RED BLOOD COUNT 4.63 10^6/uL (3.72-5.28); RED CELL DISTRIBUTION WIDTH 13.5 % (11.5-14.0); SEGMENTED NEUTROPHILS % (AUTO) 71.6 % (42-78); TOTAL CELLS COUNTED % (AUTO) 100 %; WHITE BLOOD COUNT 11.6 10^3/uL (4.0-10.5)
[2020-01-19 23:23] LABS: APPEARANCE,URINE SLIGHTLY-CLOUDY; BILIRUBIN,URINE NEGATIVE (NEGATIVE); COLOR,URINE STRAW; GLUCOSE, URINE NEGATIVE (NEGATIVE); KETONES,URINE NEGATIVE (NEGATIVE); PROTEIN,URINE NEGATIVE (NEGATIVE); URINE SPECIFIC GRAVITY 1.006; UROBILINOGEN,URINE NEGATIVE mg/dL (<2.0)
[2020-01-19 23:35] LABS: ALKALINE PHOSPHATASE 73 U/L (38-126); ANION GAP 10 (5-19); ASPARTATE AMINO TRANSFERASE 23 U/L (14-36); BILIRUBIN,DIRECT 0.2 mg/dL (0.0-0.4); BILIRUBIN,TOTAL 0.4 mg/dL (0.2-1.3); BLOOD UREA NITROGEN 14 mg/dL (7-20); CALCIUM 9.8 mg/dL (8.4-10.2); CARBON DIOXIDE 25 mmol/L (22-30); CHLORIDE 106 mmol/L (98-107); GLUCOSE 94 mg/dL (75-110); POTASSIUM 4.6 mmol/L (3.6-5.0); TOTAL PROTEIN 7.9 g/dL (6.3-8.2)
[2020-01-20] MEDS ORDERED: HYDROCODONE/ACETAMINOPHEN 5-325 MG (6 TAB/ER DISP) PO PRN (01:14)
[2020-01-20] MEDS ORDERED: ONDANSETRON ODT 4 MG TAB (6 TAB/ER DISP) PO PRN (01:14)
[2020-01-20] MEDS ORDERED: LIDOCAINE 1% INJ-PF (10 MG/ML) 30 ML SDV INFIL ONE (01:15)
[2020-01-20] MEDS ORDERED: CEFTRIAXONE INJ 1000 MG VIAL IM ONE (01:15)
--- NOTE | 2020-01-20 01:16 | ER Document Report ---
ED General - General Chief Complaint: Flank Pain Stated Complaint: FLANK PAIN,NAUSEA,VOMITING Time Seen by Provider: 01/19/20 22:31 Mode of Arrival: Ambulatory Information source: Patient Notes: Patient is a 29-year-old female coming in today with right flank pain, dysuria, nausea and chills. Patient with a history of kidney infections in the past. She is not vomiting. Does not have a history of kidney stones. She denies chest pain or shortness of breath TRAVEL OUTSIDE OF THE [place] IN LAST 30 DAYS: No - Related Data Allergies/Adverse Reactions: codeine phosphate [From Tylenol-Codeine] Adverse Reaction (Intermediate, Verified 05/28/17 19:08) Shortness of Breath Past Medical History - General Information source: Patient - Social History Smoking Status: Current Every Day Smoker Frequency of alcohol use: Social Drug Abuse: None Family History: Reviewed & Not Pertinent - Past Medical History Cardiac Medical History: Denies: Hx Coronary Artery Disease, Hx Heart Attack, Hx Hypertension Pulmonary Medical History: Reports: Hx Bronchitis Denies: Hx Asthma, Hx COPD, Hx Pneumonia, Hx Tuberculosis Neurological Medical History: Reports: Hx Migraine. Denies: Hx Cerebrovascular Accident, Hx Seizures Renal/ Medical History: Denies: Hx Peritoneal Dialysis Musculoskeletal Medical History: Denies Hx Arthritis Psychiatric Medical History: Reports: Hx Anxiety, Hx Attention Deficit Hyperactivity Disorder, Hx Depression Past Surgical History: Reports: Hx Abdominal Surgery - Hernia repair with mesh, Hx Appendectomy, Hx Cholecystectomy, Hx Orthopedic Surgery - Right finger, Hx Tubal Ligation. Denies: Hx Pacemaker - Immunizations Hx Diphtheria, Pertussis, Tetanus Vaccination: Yes - 2009 Review of Systems - Review of Systems Notes: Constitutional: Tactile fever and chills EENT: No eye redness. No eye pain. No ear pain. No sore throat. Cardiovascular: No chest pain. No palpitations. Respiratory: No cough. No shortness of breath. No respiratory distress. Gastrointestinal: No abdominal pain. Nausea no vomiting Genitourinary: Atraumatic. No lesions. No pain. No discharge. Musculoskeletal: Atraumatic. No swelling. No deformities. Skin: No rash or lesions. Lymphatic: No swollen lymph nodes. Neurologic: No headache. No syncope. Psychiatric: No suicidal or homicidal ideation. Physical Exam - Vital signs Vitals: Temp Pulse Resp BP Pulse Ox 98.0 F 98 20 113/75 95 01/19/20 21:53 01/19/20 21:53 01/19/20 21:53 01/19/20 21:53 01/19/20 21:53 - Notes Notes: General: Well-developed, well-nourished. In no acute distress. Non-toxic appearing. Cardiac: Well-perfused. Regular rate and rhythm. No murmurs, rubs, or gallops. Pulmonary: No respiratory distress. No cyanosis. Bilateral lung fiels are clear to auscultation. Abdominal: Non-distended. Non-rigid. Bowels sounds are present in all four quadrants. No guarding or rebound. Positive suprapubic tenderness to palpation. CVA tenderness on either side HEENT: Head is atraumatic. Conjunctivae not reddened. No tearing. PERRL. EOMI. Orbits atraumatic. No periorbital swelling or erythema. Oropharynx is without erythema, swelling, or exudates. Neck: Supple. No adenopathy. No meningismus. Dermatologic: Warm with good turgor. No rash. Atraumatic. Chest: Atraumatic. No chest wall tenderness to palpation. Musculoskeletal: Moves all extremities well. No range of motion deficits. no muscular or joint tenderness. No paraspinal muscle tenderness. no midline spinal tenderness or step-off. Genitourinary: Examination deferred Neurologic: No gross neurologic deficits. Psychiatric: Normal mood. Course - Re-evaluation Re-evalutation: 01/20/20 01:11 Patient has reasonable looking labs. Urinalysis consistent with UTI. This does not fit a kidney stone presentation. We will give her a shot of Rocephin and send her home on Keflex. We will give her a [place] and a Zofran take-home pack for her symptoms. - Vital Signs Vital signs: Temp Pulse Resp BP Pulse Ox 98.0 F 98 20 113/75 95 01/19/20 21:53 01/19/20 21:53 01/19/20 21:53 01/19/20 21:53 01/19/20 21:53 - Laboratory Result Diagrams: 01/19/20 23:05 01/19/20 23:05 Laboratory results interpreted by me: 01/19/20 01/19/20 23:05 23:05 WBC 11.6 H Absolute Neuts (auto) 8.3 H Urine Blood MODERATE H Leukocyte Esterase Rfl LARGE H Discharge - Discharge Clinical Impression: Urinary tract infection Qualifiers: Urinary tract infection type: site unspecified Hematuria presence: without hematuria Qualified Code(s): N39.0 - Urinary tract infection, site not specified Condition: Good Disposition: HOME, SELF-CARE Instructions: Cephalexin ([facility]), Urinary Tract Infection ([facility]) Additional Instructions: Follow-up in the clinic for recheck of your urine in 2 days. Return to the emergency department if your symptoms get worse Prescriptions: Cephalexin Monohydrate [Keflex 500 mg Capsule] 500 mg PO TID 7 Days #21 capsule Forms: Return to Work
[2020-01-20 01:43] VITALS: BP 96/80
== END 2020-01-20 02:05 | disposition home or self-care (01) ==
LOC: ER 21:46
DX: N39.0 Urinary tract infection, site not specified (principal); R10.9 Unspecified abdominal pain; R11.2 Nausea with vomiting, unspecified; R30.0 Dysuria; R68.83 Chills (without fever); F17.200 Nicotine dependence, unspecified, uncomplicated; Z88.6 Allergy status to analgesic agent
CPT/HCPCS: 99284; 96372; 36415; 84702; 85025; 80053; 81001; S0119; J3490; J0696